=== PATIENT | male | born 1950 | race Caucasian/White ===

== ENCOUNTER → 2020-10-18 | Outpatient (CLI) | payer MEDICARE, BC ==
--- NOTE | 2020-11-20 12:23 | EM ---
EVENT MONITOR The patient was monitored between the 18 of October and the October. The rhythm strip revealed a sinus mechanism with normal conduction. No episode of atrial fibrillation was noted. Episodes of atrial tachycardia was noted. Single PVCs were noted that were asymptomatic. On the 16 of November, patient had an episode that could represent paroxysmal atrial fibrillation of short duration that were asymptomatic. No pauses were noted. MMODDain / JOSHUAN: [id number] /
== END | disposition home or self-care (01) ==
LOC: RADECHMAIN 11:58
PROVIDERS: ATTEND Family Medicine
DX: I69.354 Hemiplegia and hemiparesis following cerebral infarction affecting left non-dominant side (principal)
CPT/HCPCS: 93270

== ENCOUNTER 2021-09-18 06:45 | Day surgery (SDC) | payer MEDICARE, BC ==
[2021-09-17 11:42] VITALS: BMI 38.0
[~2021-09-18 06:45] MED LIST: LACTATED RINGERS 1,000 ML IV SCH; LIDOCAINE 1% (10MG/ML) FOR IV START INTRADERMA PRN; TETRACAINE 0.5% OPHTH (PF) DROPS 4 ML BTL OP PRN
[2021-09-18] MEDS: CYCLOPENTOLATE 1% OPHTH SOLN 2 ML BTL OP PRN ×3 (07:15→07:35)
[2021-09-18] MEDS: PHENYLEPHRINE 2.5% OPHTH DRP 2ML OP PRN ×3 (07:20→07:40)
[2021-09-18 07:25] VITALS: TEMP 96.8
[2021-09-18 07:42] LABS: Glucose,Whole Blood 146 mg/dL (75-99)
[2021-09-18] MEDS ORDERED: MIDAZOLAM 2 MG/2 ML VIAL ONE (08:18)
[2021-09-18] MEDS ORDERED: fentaNYL (PF) 50 MCG/ML 2 ML AMP ONE (08:18)
[2021-09-18] MEDS ORDERED: BALANCED SALT IRRIG SOLN COMB2 15 ML IRRIG.SOLN IRRIGATION ONE (08:39)
[2021-09-18] MEDS ORDERED: HYALURONATE SODIUM INTRAOCULAR 1 EACH SYRINGE (12MG/ML) INTRAOCULA ONE (08:39)
[2021-09-18] MEDS ORDERED: LIDOCAINE 1% (PF) 10MG/ML VIAL MISCELLANE ONE (08:40)
[2021-09-18] MEDS: MOXIFLOXACIN HCL 0.5% DROPS 3 ML BTL OP PRN ×2 (08:40→08:49)
[2021-09-18] MEDS: TIMOLOL 0.5% OPHTH DROPS 5 ML BTL OP PRN ×2 (08:40→08:49)
[2021-09-18] MEDS ORDERED: EPINEPHrine (PF) 0.3 ML in BALANCED SALT IRRIG SOLN COMB2 500 ML IRRIGATION ONE (08:41)
--- NOTE | 2021-09-18 08:56 | P.OP ---
Date of Procedure: 09/18/21 Preoperative Diagnosis: NS & CS & PSC Postoperative Diagnosis: same Procedure(s) Performed: PIOL, OD Implants: [id number] 22.00 x 3.50 Anesthesia: MAC Surgeon: Mt Sterling Pathology: none sent Condition: stable Disposition: same day Indications for Procedure: blurry vision Operative Findings: no complications
[2021-09-18 09:16] VITALS: BP 110/60; PULSE 67; RESP 16
--- NOTE | 2021-09-18 15:14 | OP ---
OPERATIVE REPORT DATE OF PROCEDURE: September 18, 2021. PROCEDURE: Phacoemulsification of cataract and intraocular lens implant of the right eye. PREOPERATIVE DIAGNOSES: Nuclear sclerosis, cortical sclerosis and posterior subcapsular cataract and regular astigmatism. POSTOPERATIVE DIAGNOSES: Nuclear sclerosis, cortical sclerosis and posterior subcapsular cataract and regular astigmatism. SURGEON: Dr. Mt Sterling. ANESTHESIA: Topical. ESTIMATED BLOOD LOSS: None. SPECIMEN: Taken none. NARRATIVE: After obtaining the appropriate consent, the patient was brought to the operating room. There he was asked to sit upright and the axes 0 and 180 degrees were identified and marked with a gentian frank marker. He was then placed in the proper supine position under cardiac monitoring, then prepped and draped in the usual sterile manner. Using previously acquired corneal topography information, the axis of approximately 88 degrees was identified and marked with a Game Insighti axis marker. Attention was then directed to removal of the cataract with an MVR blade entering the anterior chamber of the eye at about 11 o'clock. Through this opening, 1% Xylocaine MPF 50:50 mix with balanced salt solution was injected into the anterior chamber. This was followed by stabilization of the anterior chamber with Amvisc. At the 9 o'clock position, a 2.5 mm keratome was used to create a self-sealing corneal flap incision. Through this opening, a cystotome was introduced to begin a continuous tear capsulorrhexis which was then completed using the Utrata forceps. Hydrodissection and hydrodelineation of the lens were accomplished with balanced salt solution. Phacoemulsification of the lens utilizing phaco chop was accomplished in 15.54 seconds at 13% power. Additional Xylocaine MPF was instilled into the anterior chamber. This was followed by removal of the remaining cortex under irrigation and aspiration as well as careful polishing of the posterior capsule in the capsule vacuum mode. Additional Amvisc was then used to stabilize the capsular bag and a Bausch [employer] Lomb MX 60ET 22.0 diopter by 350 diopter toric lens was inserted into the capsular bag without difficulty. The remaining viscoelastic was removed from in and around the intraocular lens and using the tip of the irrigation/ aspiration instrument, the lens was aligned with the previously placed belle on the patient's cornea. Confirmation was also assured by re-examining the position of the lens with the Cionni axis marker. Once the lens was in the proper supine position, slight pressure posteriorly against the lens held it against the capsule to ensure stability. The remaining viscoelastic above the lens was removed under irrigation and aspiration taking care not to disturb the position of the intraocular lens implant. The eye was then brought to normal intraocular pressure through the paracentesis port with balanced salt solution. All wounds were confirmed watertight. He then received 2 drops of 0.5% timolol followed by 2 drops of moxifloxacin, was then lightly patched and shielded in the usual manner. There were no complications of the procedure. He tolerated the procedure well and was returned to outpatient recovery in good condition. MMODL / IJN: [id number] /
== END 2021-09-18 09:48 | disposition home or self-care (01) ==
LOC: OR 06:45
PROVIDERS: ATTEND Ophthalmology
DX: H25.11 Age-related nuclear cataract, right eye (principal); H25.011 Cortical age-related cataract, right eye; I48.91 Unspecified atrial fibrillation; I10 Essential (primary) hypertension; E78.5 Hyperlipidemia, unspecified; I25.2 Old myocardial infarction; J44.9 Chronic obstructive pulmonary disease, unspecified; Z99.81 Dependence on supplemental oxygen; G47.33 Obstructive sleep apnea (adult) (pediatric); J84.10 Pulmonary fibrosis, unspecified; E11.9 Type 2 diabetes mellitus without complications; I12.9 Hypertensive chronic kidney disease with stage 1 through stage 4 chronic kidney disease, or unspecified chronic kidney disease; E11.22 Type 2 diabetes mellitus with diabetic chronic kidney disease; N18.4 Chronic kidney disease, stage 4 (severe); Z86.73 Personal history of transient ischemic attack (TIA), and cerebral infarction without residual deficits; F43.10 Post-traumatic stress disorder, unspecified; Z79.01 Long term (current) use of anticoagulants; Z79.84 Long term (current) use of oral hypoglycemic drugs; Z79.899 Other long term (current) drug therapy
CPT/HCPCS: 66984; V2787; C1780; J2250; J0171; J3010; J2001

== ENCOUNTER 2021-10-02 08:58 | Day surgery (SDC) | payer MEDICARE, BC ==
[2021-09-30 12:06] VITALS: BMI 38.0
[2021-10-02] MEDS: CYCLOPENTOLATE 1% OPHTH SOLN 2 ML BTL OP PRN ×3 (10:17→10:29)
[2021-10-02] MEDS: PHENYLEPHRINE 2.5% OPHTH DRP 2ML OP PRN ×3 (10:20→10:32)
[2021-10-02 10:24] VITALS: TEMP 97.4
[2021-10-02 10:38] LABS: Glucose,Whole Blood 119 mg/dL (75-99)
[2021-10-02] MEDS ORDERED: MIDAZOLAM 2 MG/2 ML VIAL ONE (11:16)
[2021-10-02] MEDS ORDERED: fentaNYL (PF) 50 MCG/ML 2 ML AMP ONE (11:16)
[2021-10-02] MEDS ORDERED: BALANCED SALT IRRIG SOLN COMB2 15 ML IRRIG.SOLN INTRAOCULA ONE ×2 (11:21→11:56)
[2021-10-02] MEDS ORDERED: DUOVISC KIT (GREEN BOX) INTRAOCULA ONE ×2 (11:21→11:56)
[2021-10-02] MEDS ORDERED: TRYPAN BLUE 0.06% SYRINGE 0.5 ML SYRINGE INTRAOCULA ONE ×2 (11:22→11:56)
[2021-10-02] MEDS ORDERED: LIDOCAINE 1% (PF) 10MG/ML VIAL MISCELLANE ONE ×2 (11:23→11:56)
[2021-10-02] MEDS ORDERED: EPINEPHrine (PF) 0.3 ML in BALANCED SALT IRRIG SOLN COMB2 500 ML IRRIGATION ONE (11:45)
[2021-10-02] MEDS: MOXIFLOXACIN HCL 0.5% DROPS 3 ML BTL OP PRN ×2 (11:45→12:02)
[2021-10-02] MEDS: TIMOLOL 0.5% OPHTH DROPS 5 ML BTL OP PRN ×2 (11:46→12:02)
--- NOTE | 2021-10-02 12:09 | P.OP ---
Date of Procedure: 10/02/21 Preoperative Diagnosis: NS & CS & PSC Postoperative Diagnosis: same Procedure(s) Performed: PIOL, OS Implants: [id number] Anesthesia: MAC Surgeon: Mt Sterling Pathology: none sent Condition: stable Disposition: same day Indications for Procedure: blurry vision Operative Findings: no complications
[2021-10-02 12:30] VITALS: BP 123/76; PULSE 79; RESP 20
--- NOTE | 2021-10-03 11:35 | OP ---
OPERATIVE REPORT DATE OF SURGERY: October 02, 2021. PROCEDURE PERFORMED: Phacoemulsification of cataract and intraocular lens implant of the left eye. PREOPERATIVE DIAGNOSES: Nuclear sclerosis, cortical sclerosis, posterior subcapsular cataract and regular stigmatism. POSTOPERATIVE DIAGNOSES: Nuclear sclerosis, cortical sclerosis, posterior subcapsular cataract and regular stigmatism. SURGEON: Dr. Mt Sterling. ANESTHESIA: Topical. ESTIMATED BLOOD LOSS: None. SPECIMEN TAKEN: None. NARRATIVE: After obtaining the appropriate consent, the patient was brought to the operating room. There he was asked to sit upright and the axes 0 and 180 degrees were identified and marked with a gentian frank marker. He was then placed in the proper supine position under cardiac monitoring and prepped and draped in the usual sterile manner. He was approached from his left temporal side and using previously acquired corneal topography information, the axis of 83 degrees was identified and marked with the Cue axis marker. At the 5 o'clock position, an MVR blade was used to create a paracentesis port. Through this opening 1% Xylocaine MPF 50:50 mix with balanced salt solution was injected into the anterior chamber. This was followed by stabilization of the anterior chamber with Amvisc. At the 3 o'clock position, a 2.5 mm keratome was used to create a self-sealing corneal flap incision. Through this opening, a cystotome was introduced to begin a continuous tear capsulorrhexis which was then completed using the Utrata forceps. Hydrodissection and hydrodelineation of the lens were accomplished with balanced salt solution. Phacoemulsification of the lens utilizing phaco chop was accomplished in 21.87 seconds at 36% power. Additional Xylocaine MPF was instilled into the anterior chamber. This was followed by removal of the remaining cortex under irrigation and aspiration as well as careful polishing of the posterior capsule in capsule vacuum mode. Additional Amvisc was then used to stabilize the capsular bag and a Bausch and Lomb MX 60ET 21.5 diopter by 2 diopter posterior chamber intraocular lens was inserted into the capsular bag and finally rotated to align with the previously identified 83 degree axis on the patient's cornea. The remaining viscoelastic was removed from in and around the intraocular lens as well as confirming watertight integrity. He then received 2 drops of 0.5% timolol followed by 2 drops of 0.5% moxifloxacin. He was then lightly patched and shielded in the usual manner. There were no complications from the procedure. He tolerated the procedure well and was returned to outpatient recovery in good condition. MMKAYLENE / JOSHUAN: [id number] /
== END 2021-10-02 12:41 | disposition home or self-care (01) ==
LOC: OR 08:58
PROVIDERS: ATTEND Ophthalmology
DX: H25.12 Age-related nuclear cataract, left eye (principal); E11.36 Type 2 diabetes mellitus with diabetic cataract; H25.093 Other age-related incipient cataract, bilateral; H52.223 Regular astigmatism, bilateral; H52.03 Hypermetropia, bilateral; H53.2 Diplopia; H00.026 Hordeolum internum left eye, unspecified eyelid; H00.023 Hordeolum internum right eye, unspecified eyelid; H52.4 Presbyopia; Z96.1 Presence of intraocular lens; Z98.41 Cataract extraction status, right eye; Z98.890 Other specified postprocedural states; Z96.643 Presence of artificial hip joint, bilateral; Z79.84 Long term (current) use of oral hypoglycemic drugs; Z79.899 Other long term (current) drug therapy
CPT/HCPCS: 66984; V2632; J2250; J0171; J3010; J2001

== ENCOUNTER 2025-02-14 14:33 | Inpatient (IN) | payer MEDICARE, BC ==
--- NOTE | 2025-02-14 15:03 | ED ---
General Adult HPI - General Chief complaint: Shortness of Breath Stated complaint: SOB Time Seen by Provider: 02/14/25 14:34 Source: patient, RN/MD, RN notes reviewed Mode of arrival: wheelchair Limitations: no limitations - History of Present Illness Initial comments: Patient is a 74-year-old male presents to the emergency department with concerns with difficulty breathing. Symptoms worsened today. Patient has had similar symptoms previously and has stage IV lung cancer. No effusion developed and was drained, 2 L several days ago. Patient followed up with oncology today with positive cells in the effusion and recommended to come here secondary to concern recurrent effusion. Also request medical admission with him and consult as well as cardiothoracic surgery and Dr. Mcqueen. - Related Data Home Medications Medication Instructions Recorded Confirmed Amitriptyline HCl [Elavil] 100 mg PO HS 07/27/17 09/30/21 Cholecalciferol [Vitamin D3 (25 1,000 unit PO DAILY 07/27/17 09/30/21 Mcg = 1000 Iu)] Cyanocobalamin (Vitamin B-12) 500 mcg PO DAILY 07/27/17 09/30/21 [Vitamin B-12] Furosemide [Lasix] 40 mg PO MOWEFR 07/27/17 09/30/21 Magnesium Oxide 400 mg PO DAILY 07/27/17 09/30/21 Multivitamins, Thera [Multivitamin 1 tab PO DAILY 07/27/17 09/30/21 (formulary)] Psyllium Husk [Metamucil] 1.2 gm PO DAILY 07/27/17 09/30/21 Apixaban [Eliquis] 5 mg PO BID 09/17/21 09/30/21 Budesonide [Pulmicort] 0.5 mg INHALATION BID 09/17/21 09/30/21 Empagliflozin [Jardiance] 25 mg PO DAILY 09/17/21 09/30/21 Furosemide [Lasix] 20 mg PO SUTUTHSA 09/17/21 09/30/21 Metoprolol Tartrate 25 mg PO BID 09/17/21 10/02/21 Rosuvastatin [Crestor] 10 mg PO 1900 09/17/21 09/30/21 Tiotropium Joseph [Spiriva] 1 cap INHALATION DAILY 09/17/21 09/30/21 Zolpidem [Ambien] 5 mg PO HS 09/17/21 09/30/21 glipiZIDE [Glucotrol] 20 mg PO AC-BID 09/17/21 09/30/21 Previous Rx's Medication Instructions Recorded Aspirin 81 mg PO DAILY chew 07/28/17 Allergies Allergy/AdvReac Type Severity Reaction Status Date / Time No Known Allergies Allergy Verified 02/14/25 14:38 Review of Systems ROS Statement: Those systems with pertinent positive or pertinent negative responses have been documented in the HPI. ROS Other: All systems not noted in ROS Statement are negative. Constitutional: Denies: fever Eyes: Denies: eye pain ENT: Denies: ear pain Respiratory: Reports: as per HPI, cough, dyspnea Cardiovascular: Denies: chest pain Endocrine: Denies: fatigue Past Medical History Past Medical History: COPD, CVA/TIA, Diabetes Mellitus, Hyperlipidemia, Hypertension, Myocardial Infarction ([place]), Osteoarthritis (OA), Renal Disease, Sleep Apnea/CPAP/BIPAP Additional Past Medical History / Comment(s): TIA X6, PULMONARY FIBROSIS, O2 NEEDED, C PAP MACHINE, CHRONIC KIDNEY STAGE 3, ELEVATED RBC'S, Last Myocardial Infarction Date:: 1985 History of Any Multi-Drug Resistant Organisms: None Reported Past Surgical History: Joint Replacement, Tonsillectomy Additional Past Surgical History / Comment(s): RIGHT TOTAL HIP, LEFT TOTAL HIP REPLACEMENT, INGUINAL HERNIA X 4, CYST REMOVED FROM SCALP Past Anesthesia/Blood Transfusion Reactions: No Reported Reaction Past Psychological History: PTSD Smoking Status: Former smoker Past Alcohol Use History: None Reported Past Drug Use History: None Reported - Past Family History Father Additional Family Medical History / Comment(s): Patient was adopted and does not know his biological family history. Son(s) Family Medical History: Cancer Additional Family Medical History / Comment(s): Patient has one son has been diagnosed with bladder cancer. Patient has one daughter with no major medical problems. General Exam Limitations: no limitations General appearance: alert, in no apparent distress Head exam: Present: normocephalic Eye exam: Present: normal appearance Neck exam: Present: normal inspection Respiratory exam: Present: decreased breath sounds Cardiovascular Exam: Present: regular rate, normal rhythm GI/Abdominal exam: Present: soft. Absent: tenderness Extremities exam: Present: normal inspection. Absent: pedal edema, calf tenderness Neurological exam: Present: alert. Absent: motor sensory deficit Psychiatric exam: Present: normal affect, normal mood Skin exam: Present: normal color Course Vital Signs 02/14/25 02/14/25 02/14/25 14:34 14:38 14:52 Temperature 97.9 F Pulse Rate 92 93 Respiratory 20 20 20 Rate Blood Pressure 107/69 121/79 O2 Sat by Pulse 96 97 Oximetry 02/14/25 15:30 Temperature Pulse Rate 92 Respiratory 18 Rate Blood Pressure 133/73 O2 Sat by Pulse 95 Oximetry EKG Findings - EKG Results: EKG: interpreted by ERMD, sinus rhythm, normal axis, normal QRS, normal ST/T Medical Decision Making - Medical Decision Making Was pt. sent in by a medical professional or institution (, PA, INSTALLATION & MAINTENANCE EXECUTIVE, urgent care, hospital, or usp...) When possible be specific @ -Patient was sent in by Dr. Andrew Garcia Did you speak to anyone other than the patient for history (EMS, parent, family, police, friend...)? What history was obtained from this source @ -Dr. Mahan provided history of recent thoracentesis Did you review nursing and triage notes (agree or disagree)? Why? @ -I reviewed and agree with nursing and triage notes Were old charts reviewed (outside hosp., previous admission, EMS record, old EKG, old radiological studies, urgent care reports/EKG's, usp records)? Report findings @ -No old charts were reviewed Differential Diagnosis (chest pain, altered mental status, abdominal pain women, abdominal pain men, vaginal bleeding, weakness, fever, dyspnea, syncope, headache, dizziness, GI bleed, back pain, seizure, CVA, palpatations, mental health, musculoskeletal)? @ -Differential Dyspnea: Coronary syndrome, arrhythmia, tamponade, asthma, COPD, pulmonary embolism, pneumonia, pneumothorax, pulmonary effusion, anaphylaxis, diabetic ketoacidosis, flailed chest, pulmonary contusion, diaphragmatic rupture, anemia, neuromuscular, this is not meant to be an all-inclusive list. EKG interpreted by me (3pts min.). @ -As above X-rays interpreted by me (1pt min.). @ -Chest x-ray shows large left effusion CT interpreted by me (1pt min.). @ -None done U/S interpreted by me (1pt. min.). @ -None done What testing was considered but not performed or refused? (CT, X-rays, U/S, labs)? Why? @ -None What meds were considered but not given or refused? Why? @ -None Did you discuss the management of the patient with other professionals (professionals i.e. , PA, INSTALLATION & MAINTENANCE EXECUTIVE, lab, RT, psych nurse, social welfare research worker, reinforcing iron worker helper, teacher, parachute/combatant diver officer, top case assembler)? Give summary @ -Dr. Mich Beltrán, see above case all discussed with Dr. George Terry who will admit covering Dr. Miles Was smoking cessation discussed for >3mins.? @ -No Was critical care preformed (if so, how long)? @ -No Were there social determinants of health that impacted care today? How? (Homelessness, low income, unemployed, alcoholism, drug addiction, transportation, low edu. Level, literacy, decrease access to med. care, fpc, rehab)? @ -No Was there de-escalation of care discussed even if they declined (Discuss DNR or withdrawal of care, Hospice)? DNR status @ -No What co-morbidities impacted this encounter? (DM, HTN, Smoking, COPD, CAD, Cancer, CVA, ARF, Chemo, Hep., AIDS, mental health diagnosis, sleep apnea, morbid obesity)? @ -Metastatic lung cancer Was patient admitted / discharged? Hospital course, mention meds given and route, prescriptions, significant lab abnormalities, going to OR and other pertinent info. @ -Patient presents with stage IV lung cancer and recurrent left effusion. David flores will be admitted with cardiothoracic consult for probable tube placement. Oncology and pulmonary will also be placed on consult. Patient and family are made aware. Douglas orders written. Undiagnosed new problem with uncertain prognosis? @ -No Drug Therapy requiring intensive monitoring for toxicity (Heparin, Nitro, Insulin, Cardizem)? @ -No Were any procedures done? @ -No Diagnosis/symptom? @ -Left effusion, stage IV lung cancer Acute, or Chronic, or Acute on Chronic? @ -Acute, acute on chronic Uncomplicated (without systemic symptoms) or Complicated (systemic symptoms)? @ -Default Side effects of treatment? @ -No Exacerbation, Progression, or Severe Exacerbation? @ -No Poses a threat to life or bodily function? How? (Chest pain, [place], [place], pneumonia, PE, COPD, DKA, ARF, appy, cholecystitis, CVA, Diverticulitis, Homicidal, Suicidal, threat to staff... and all critical care pts) @ -Threat to pulmonary function - Lab Data Result diagrams: 02/14/25 14:53 02/14/25 14:53 Lab Results 02/14/25 02/14/25 02/14/25 Range/Units 14:53 14:53 14:53 WBC 7.20 (4.50-10.00) 10*3/uL RBC 3.88 L (4.40-5.60) 10*6/uL Hgb 13.2 (13.0-17.0) g/dL Hct 40.3 (39.6-50.0) % MCV 103.9 H (80.0-97.0) fL MCH 34.0 H (27.0-32.0) pg MCHC 32.8 (32.0-37.0) g/dL Plt Count 205 (140-440) 10*3/uL MPV 10.4 (9.5-12.2) fL Immature Gran % (Auto) 0.6 % Neutrophils % 83.4 % Lymphocytes % 6.0 % Monocytes % 7.8 % Eosinophils % 1.8 % Basophils % 0.4 % Immature Gran # 0.04 (0.00-0.04) 10*3/uL Neutrophils # 6.01 (1.80-7.70) 10*3/uL Lymphocytes # 0.43 L (0.90-5.00) 10*3/uL Monocytes # 0.56 (0.20-1.00) 10*3/uL Eosinophils # 0.13 (0.04-0.35) 10*3/uL Basophils # 0.03 (0.00-0.10) 10*3/uL PT 12.2 (10.0-12.5) sec INR 1.1 (<1.2) APTT 26.1 (22.0-30.0) sec Sodium 138 (137-145) mmol/L Potassium 4.3 (3.5-5.1) mmol/L Chloride 102 (98-107) mmol/L Carbon Dioxide 29 (22-30) mmol/L Anion Gap 7 mmol/L BUN 19 (9-20) mg/dL Creatinine 1.19 (0.66-1.25) mg/dL Est GFR (CKD-EPI)AfAm 68 (>60 ml/min/1.73 sqM) Est GFR (CKD-EPI)NonAf 59 (>60 ml/min/1.73 sqM) Glucose 174 H (74-99) mg/dL Plasma Lactic Acid Malik (0.7-2.0) mmol/L Calcium 8.9 (8.4-10.2) mg/dL Total Bilirubin 0.4 (0.2-1.3) mg/dL AST 26 (17-59) U/L ALT 30 (4-49) U/L Alkaline Phosphatase 82 (38-126) U/L Troponin I (0.000-0.034) ng/mL Total Protein 5.7 L (6.3-8.2) g/dL Albumin 3.2 L (3.5-5.0) g/dL 02/14/25 02/14/25 Range/Units 14:53 14:53 WBC (4.50-10.00) 10*3/uL RBC (4.40-5.60) 10*6/uL Hgb (13.0-17.0) g/dL Hct (39.6-50.0) % MCV (80.0-97.0) fL MCH (27.0-32.0) pg MCHC (32.0-37.0) g/dL Plt Count (140-440) 10*3/uL MPV (9.5-12.2) fL Immature Gran % (Auto) % Neutrophils % % Lymphocytes % % Monocytes % % Eosinophils % % Basophils % % Immature Gran # (0.00-0.04) 10*3/uL Neutrophils # (1.80-7.70) 10*3/uL Lymphocytes # (0.90-5.00) 10*3/uL Monocytes # (0.20-1.00) 10*3/uL Eosinophils # (0.04-0.35) 10*3/uL Basophils # (0.00-0.10) 10*3/uL PT (10.0-12.5) sec INR (<1.2) APTT (22.0-30.0) sec Sodium (137-145) mmol/L Potassium (3.5-5.1) mmol/L Chloride (98-107) mmol/L Carbon Dioxide (22-30) mmol/L Anion Gap mmol/L BUN (9-20) mg/dL Creatinine (0.66-1.25) mg/dL Est GFR (CKD-EPI)AfAm (>60 ml/min/1.73 sqM) Est GFR (CKD-EPI)NonAf (>60 ml/min/1.73 sqM) Glucose (74-99) mg/dL Plasma Lactic Acid Malik 1.8 (0.7-2.0) mmol/L Calcium (8.4-10.2) mg/dL Total Bilirubin (0.2-1.3) mg/dL AST (17-59) U/L ALT (4-49) U/L Alkaline Phosphatase (38-126) U/L Troponin I <0.012 (0.000-0.034) ng/mL Total Protein (6.3-8.2) g/dL Albumin (3.5-5.0) g/dL Disposition Clinical Impression: Recurrent left pleural effusion Disposition: ADMITTED IP TO THIS [facility] Condition: Serious Is patient prescribed a controlled substance at d/c from ED?: No Referrals: Felicity Miles MD [Primary Care Provider] - 1-2 days Time of Disposition: 16:11
[2025-02-14 15:09] LABS: Basophils # (A) 0.03 10*3/uL (0.00-0.10); Basophils % (A) 0.4 %; Eosinophils # (A) 0.13 10*3/uL (0.04-0.35); Eosinophils % (A) 1.8 %; HCT 40.3 % (39.6-50.0); HGB 13.2 g/dL (13.0-17.0); Lymphocytes # (A) 0.43 10*3/uL (0.90-5.00); Lymphocytes % (A) 6.0 %; MCH 34.0 pg (27.0-32.0); MCHC 32.8 g/dL (32.0-37.0); MCV 103.9 fL (80.0-97.0); Monocytes # (A) 0.56 10*3/uL (0.20-1.00); Monocytes % (A) 7.8 %; Neutrophils # (A) 6.01 10*3/uL (1.80-7.70); Neutrophils % (A) 83.4 %; Platelet Count 205 10*3/uL (140-440); RBC 3.88 10*6/uL (4.40-5.60); RDW 13.0 % (11.5-14.5); WBC 7.20 10*3/uL (4.50-10.00)
[2025-02-14 15:17] LABS: INR 1.1 (<1.2); Partial Thromboplastin Time 26.1 sec (22.0-30.0); Prothrombin Time 12.2 sec (10.0-12.5)
[2025-02-14 15:20] LABS: ALT 30 U/L (4-49); AST 26 U/L (17-59); African American GFR (CKD) 68 (>60 ml/min/1.73 sqM); Albumin 3.2 g/dL (3.5-5.0); Alkaline Phosphatase 82 U/L (38-126); Anion Gap 7 mmol/L; Blood Urea Nitrogen 19 mg/dL (9-20); Calcium 8.9 mg/dL (8.4-10.2); Carbon Dioxide 29 mmol/L (22-30); Chloride 102 mmol/L (98-107); Glucose 174 mg/dL (74-99); Non-African American GFR(CKD) 59 (>60 ml/min/1.73 sqM); Potassium 4.3 mmol/L (3.5-5.1); Sodium 138 mmol/L (137-145); Total Protein 5.7 g/dL (6.3-8.2)
--- NOTE | 2025-02-14 15:40 | XR ---
EXAMINATION TYPE: XR chest 2V DATE OF EXAM: 02/14/2025 3:28 PM COMPARISON: None at this location. CLINICAL INDICATION: Male, 74 years old with history of difficulty breathing, TECHNIQUE: XR chest 2V view(s) obtained. FINDINGS: The heart size may be enlarged. The left heart border however is obscured by a large left pleural eff usion. The pulmonary vasculature is normal. There is a large left pleural effusion.. IMPRESSION: 1. Large left pleural effusion [facility], Workstation: [facility], 02/14/2025 3:38 PM
[2025-02-14] MEDS ORDERED: traMADol 50 MG TAB PO PRN (16:11)
[2025-02-14] MEDS ORDERED: ACETAMINOPHEN TAB 325 MG TAB PO PRN (16:11)
[2025-02-14] MEDS ORDERED: MORPHINE SULFATE 4 MG/ML SYRINGE IV PRN (16:11)
[2025-02-14] MEDS ORDERED: NALOXONE 0.4 MG/ML 1 ML VIAL IV PRN (16:11)
[2025-02-14] MEDS: SODIUM CHLORIDE 0.9% 1,000 ML IV SCH (16:23)
[2025-02-14 17:26] LABS: RSV Not Detected (Not Detectd)
[2025-02-14] MEDS ORDERED: DEXTROSE 50% SYRINGE 50 ML IVP PRN ×2 (20:43)
[2025-02-14] MEDS ORDERED: NITROGLYCERIN SL TABS 0.4 MG TAB SUBLINGUAL PRN (20:44)
[2025-02-14] MEDS ORDERED: FUROSEMIDE 40 MG TAB PO PRN (20:44)
[2025-02-14] MEDS ORDERED: METOPROLOL TARTRATE 12.5 MG TAB PO PRN (20:44)
[2025-02-14 21:26] LABS: Glucose,Whole Blood 156 mg/dL (70-110)
[2025-02-14] MEDS: AMMONIUM LACTATE 12% LOTION 225 GM BTL TOPICAL SCH (22:27)
[2025-02-14] MEDS: METOPROLOL TARTRATE 50 MG TAB PO SCH (22:27)
[2025-02-14] MEDS: INSULIN LISPRO (HumaLOG) 100 UNIT/ML 10 mL VL SQ SCH (22:27)
[2025-02-14] MEDS: AMITRIPTYLINE HCL 50 MG TAB PO SCH (22:27)
[2025-02-14] MEDS: ZOLPIDEM 5 MG TAB PO SCH (22:28)
[2025-02-14] MEDS: MAGNESIUM OXIDE 400 MG TAB PO SCH (22:28)
--- NOTE | 2025-02-14 23:18 | P.HPIM ---
History of Present Illness H&P Date: 02/14/25 Chief Complaint: Shortness of breath Patient is a 74-year-old male with a past medical history of metastatic lung cancer with prior thoracentesis, diabetes type 2, hypertension, hyperlipidemia, history of CVA/TIA, obstructive sleep apnea on CPAP, pulmonary fibrosis CKD stage III and prior history of smoking. Patient was sent to ER from his oncologist office due to shortness of breath and left-sided pleural effusion. Patient initially presented due to difficulty in breathing which has been worsening. Patient was sent to ER due to recurrent pleural effusion. Otherwise patient denied any complaints of fever or chills. Mild cough without any sputum production. No complaints of chest pain. Denies any worsening leg swelling. No nausea vomiting abdominal pain or diarrhea. Chest x-ray showed large left pleural effusion. EKG showed sinus rhythm. Laboratory data showed WBC 7.2, hemoglobin 13.2 and platelets 205 MCV 103.9, sodium 138 potassium 4.3 chloride 102 bicarb is 29 BUN 19 and creatinine 1.19 and blood sugar 174. Albumin 3.2 Influenza A B RSV and COVID-19 PCR not detected. Review of Systems Constitutional: Patient denies any fever or chills . No generalized weakness or weight loss. Abdomen: Patient denied nausea vomiting and diarrhea and abdominal pain. Cardiovascular: Patient denies any chest pain. Positive for short of breath no palpitations. No worsening leg swelling. Respiratory: Does have mild cough without sputum production. Positive for shortness of breath Neurologic: Patient denied any numbness or tingling. no headache. Musculoskeletal: Patient denies any complaints of joint swelling or deformity. Skin: Negative Psychiatric: Negative Endocrine: No heat or cold intolerance. No recent weight gain. Genitourinary: No dysuria or hematuria. All other 14 point ROS negative except the above Past Medical History Past Medical History: COPD, CVA/TIA, Diabetes Mellitus, Hyperlipidemia, Hypertension, Myocardial Infarction ([place]), Osteoarthritis (OA), Renal Disease, Sleep Apnea/CPAP/BIPAP Additional Past Medical History / Comment(s): TIA X6, PULMONARY FIBROSIS, O2 NEEDED, C PAP MACHINE, CHRONIC KIDNEY STAGE 3, ELEVATED RBC'S, Last Myocardial Infarction Date:: 1985 History of Any Multi-Drug Resistant Organisms: None Reported Past Surgical History: Joint Replacement, Tonsillectomy Additional Past Surgical History / Comment(s): RIGHT TOTAL HIP, LEFT TOTAL HIP REPLACEMENT, INGUINAL HERNIA X 4, CYST REMOVED FROM SCALP Past Anesthesia/Blood Transfusion Reactions: No Reported Reaction Smoking Status: Former smoker - Past Family History Father Additional Family Medical History / Comment(s): Patient was adopted and does not know his biological family history. Son(s) Family Medical History: Cancer Additional Family Medical History / Comment(s): Patient has one son has been diagnosed with bladder cancer. Patient has one daughter with no major medical problems. Medications and Allergies Home Medications Medication Instructions Recorded Confirmed Type Furosemide [Lasix] 40 mg PO DAILY PRN 07/27/17 02/14/25 History Magnesium Oxide 400 mg PO HS 07/27/17 02/14/25 History Psyllium Husk [Metamucil] 1.6 gm PO DAILY 07/27/17 02/14/25 History Apixaban [Eliquis] 5 mg PO BID 09/17/21 02/14/25 History Metoprolol Tartrate 50 mg PO BID 09/17/21 02/14/25 History Tiotropium [place] [Spiriva] 2 puff INHALATION RT-DAILY 09/17/21 02/14/25 History Zolpidem [Ambien] 5 mg PO HS 09/17/21 02/14/25 History Amitriptyline HCl [Elavil] 100 mg PO HS 02/14/25 02/14/25 History Ammonium Lactate Lotion 1 applic TOPICAL BID 02/14/25 02/14/25 History [Lac-Hydrin 12% Lotion] Cholecalciferol (Vitamin D3) 50 mcg PO DAILY 02/14/25 02/14/25 History [Vitamin D3 (50 Mcg = 2000 Iu)] Cyanocobalamin [Vitamin B-12] 500 mcg PO DAILY 02/14/25 02/14/25 History Insulin Glargine,Hum.rec.anlog 28 units SQ DAILY 02/14/25 02/14/25 History [Lantus Solostar Pen] Metoprolol Tartrate 12.5 mg PO DAILY PRN 02/14/25 02/14/25 History Nitroglycerin Sl Tabs [Nitrostat] 0.4 mg SUBLINGUAL Q5M PRN 02/14/25 02/14/25 History Rosuvastatin [Crestor] 10 mg PO DAILY 02/14/25 02/14/25 History Semaglutide [Ozempic] 2 mg SQ WE 02/14/25 02/14/25 History Allergies Allergy/AdvReac Type Severity Reaction Status Date / Time No Known Allergies Allergy Verified 02/14/25 18:28 Physical Exam Vitals: Vital Signs Temp Pulse Pulse Resp BP BP Pulse Ox 02/14/25 18:46 98.4 F 98 18 117/78 96 02/14/25 18:00 98.2 F 95 18 104/68 94 L 02/14/25 16:52 93 20 101/66 98 02/14/25 15:30 92 18 133/73 95 02/14/25 14:52 20 02/14/25 14:38 93 20 121/79 97 02/14/25 14:34 97.9 F 92 20 107/69 96 Intake and Output 02/14/25 02/14/25 02/15/25 14:59 22:59 06:59 Intake Total 240 Balance 240 Intake: Oral 240 Other: Weight 103.419 kg 103.419 kg PHYSICAL EXAMINATION: Patient is lying in the bed comfortably, no acute distress, awake alert and oriented.. HEENT: Normocephalic. Neck is supple. Pupils reactive. Nostrils clear. Oral cavity is moist. Neck reveals no JVD, carotid bruits, or thyromegaly. CHEST EXAMINATION: Trachea is central. Symmetrical expansion. Left lower lungs diminished breath sounds. No wheezing or rhonchi. Nonlabored breathing. CARDIAC: Normal S1, S2 with no gallops. No murmurs ABDOMEN: Soft. Bowel sounds normal. No organomegaly. No abdominal bruits. Extremities: Bilateral lower extremity trace edema. No clubbing or cyanosis Neurologically awake, alert, oriented x3 with well-coordinated movements. No focal deficits noted Skin: No rash or skin lesions. Psychiatric: Coperative. Nonsuicidal Musculoskeletal: No joint swelling or deformity. Normal range of motion. Results CBC & Chem 7: 02/14/25 14:53 02/14/25 14:53 Labs: Abnormal Lab Results - Last 24 Hours (Table) 02/14/25 02/14/25 02/14/25 Range/Units 14:53 14:53 21:23 RBC 3.88 L (4.40-5.60) 10*6/uL MCV 103.9 H (80.0-97.0) fL MCH 34.0 H (27.0-32.0) pg Lymphocytes # 0.43 L (0.90-5.00) 10*3/uL Glucose 174 H (74-99) mg/dL POC Glucose (mg/dL) 156 H (70-110) mg/dL Total Protein 5.7 L (6.3-8.2) g/dL Albumin 3.2 L (3.5-5.0) g/dL Thrombosis Risk Factor Assmnt - DVT/VTE Prophylaxis DVT/VTE Prophylaxis: Pharmacologic Prophylaxis ordered - Choose All That Apply Any of the Below Risk Factors Present?: Yes Each Factor Represents 1 point: Abnormal pulmonary function (COPD) Each Risk Factor Represents 2 Points: Malignancy Other congenital or acquired thrombophilia - If yes, enter type in comment: No Thrombosis Risk Factor Assessment Total Risk Factor Score: 3 Thrombosis Risk Factor Assessment Level: Moderate Risk Assessment and Plan Assessment: Large left pleural effusion with worsening shortness of breath Prior history of thoracentesis with 2 L fluid removal Metastatic lung cancer Diabetes type 2 with hyperglycemia uncontrolled Hyperlipidemia History of CVA/TIA Obstructive sleep apnea on CPAP CKD stage III Prior history of smoking DVT prophylaxis with heparin subcu Plan: Patient will be continued on home medication including Lasix. Oxygen supplementation as needed. CT surgery and pulmonary was consulted for evaluation and possible Pleurx catheter placement. Insulin sliding scale along with home dose of Lantus 28 units subcu daily. Continue to follow closely. Prognosis is guarded. Time with Patient: Greater than 30
[2025-02-14] MEDS: HEPARIN SODIUM,PORCINE 5,000 UNIT/ML 1 ML VIAL SQ SCH (23:59)
--- NOTE | 2025-02-15 04:00 | P.CNPUL ---
History of Present Illness Consult date: 02/15/25 Requesting physician: Pedro Gandhi Reason for consult: other (Left-sided pleural effusion) Chief complaint: Shortness of breath History of present illness: Patient is a 74-year-old male with reported past medical history including hypertension, hyperlipidemia, diabetes mellitus, GIANLUCA with CPAP, former tobacco smoker, COPD. Follows with Dr. ED Herron for management of his pulmonary needs. Apparently, recently admitted at [facility] and underwent left- sided thoracentesis and a total of 2 L was removed. Per the patient it was cancer fluid. He states he has been diagnosed with lung cancer and on immunotherapy. Reportedly, follows with Dr. Muñoz. Developed progressive increased work of breathing since his hospital discharge. He was at his oncology office who recommended he come to the emergency department for evaluation. Chest x-ray showing a large left pleural effusion. CBC unremarkable for leukocytosis. Hemoglobin 13.2 g/dL. Platelets 205. CMP unremarkable, electrolytes WDL, creatinine 1.19, glucose 174. Lactic 1.8. LFTs unremarkable. Troponin less than 0.012. Viral screen for influenza A/B, RSV, COVID negative. Patient currently being seen on the oncology unit. He is resting comfortably on 3 L/min nasal cannula. States he has progressively been more short of breath since his hospital discharge. Denies any cough, sputum production, hemoptysis, pleurisy, fevers or chills, nausea or vomiting or diarrhea. Current vital signs: Temperature 97.8 F, heart rate 85 beats minute, blood pressure 113/72 mmHg, nontachypneic, SpO2 was recorded at 96% on 3 L/min nasal cannula. Review of Systems REVIEW OF SYSTEMS: CONSTITUTIONAL: Denies any recent significant weight loss or weight gain. Denies fevers or chills. Admits generalized fatigue and weakness EYES: Denies change in vision. EARS, NOSE, MOUTH, THROAT: Denies headaches, denies sore throat. CARDIOVASCULAR: Denies chest pain, palpitations, syncope, lower extremity edema RESPIRATORY: See HPI GASTROINTESTINAL: Denies change in appetite, abdominal pain, nausea and vomiting, or diarrhea GENITOURINARY: Denies hematuria, denies infections. MUSKULOSKELETAL: Denies pain, denies swelling. INTEGUMENTARY: Denies rash, denies eczema. NEUROLOGICAL: Denies recent memory loss, no recent seizure activity. PSYCHIATRIC: Denies anxiety, denies depression. HEMATOLOGIC/LYMPHATIC: Denies anemia, denies enlarged lymph node Past Medical History Past Medical History: COPD, CVA/TIA, Diabetes Mellitus, Hyperlipidemia, Hypertension, Myocardial Infarction ([place]), Osteoarthritis (OA), Renal Disease, Sleep Apnea/CPAP/BIPAP Additional Past Medical History / Comment(s): TIA X6, PULMONARY FIBROSIS, O2 NEEDED, C PAP MACHINE, CHRONIC KIDNEY STAGE 3, ELEVATED RBC'S, Last Myocardial Infarction Date:: 1985 History of Any Multi-Drug Resistant Organisms: None Reported Past Surgical History: Joint Replacement, Tonsillectomy Additional Past Surgical History / Comment(s): RIGHT TOTAL HIP, LEFT TOTAL HIP REPLACEMENT, INGUINAL HERNIA X 4, CYST REMOVED FROM SCALP Past Anesthesia/Blood Transfusion Reactions: No Reported Reaction Smoking Status: Former smoker - Past Family History Father Additional Family Medical History / Comment(s): Patient was adopted and does not know his biological family history. Son(s) Family Medical History: Cancer Additional Family Medical History / Comment(s): Patient has one son has been diagnosed with bladder cancer. Patient has one daughter with no major medical problems. Medications and Allergies Home Medications Medication Instructions Recorded Confirmed Type Furosemide [Lasix] 40 mg PO DAILY PRN 07/27/17 02/14/25 History Magnesium Oxide 400 mg PO HS 07/27/17 02/14/25 History Psyllium Husk [Metamucil] 1.6 gm PO DAILY 07/27/17 02/14/25 History Apixaban [Eliquis] 5 mg PO BID 09/17/21 02/14/25 History Metoprolol Tartrate 50 mg PO BID 09/17/21 02/14/25 History Tiotropium [place] [Spiriva] 2 puff INHALATION RT-DAILY 09/17/21 02/14/25 History Zolpidem [Ambien] 5 mg PO HS 09/17/21 02/14/25 History Amitriptyline HCl [Elavil] 100 mg PO HS 02/14/25 02/14/25 History Ammonium Lactate Lotion 1 applic TOPICAL BID 02/14/25 02/14/25 History [Lac-Hydrin 12% Lotion] Cholecalciferol (Vitamin D3) 50 mcg PO DAILY 02/14/25 02/14/25 History [Vitamin D3 (50 Mcg = 2000 Iu)] Cyanocobalamin [Vitamin B-12] 500 mcg PO DAILY 02/14/25 02/14/25 History Insulin Glargine,Hum.rec.anlog 28 units SQ DAILY 02/14/25 02/14/25 History [Lantus Solostar Pen] Metoprolol Tartrate 12.5 mg PO DAILY PRN 02/14/25 02/14/25 History Nitroglycerin Sl Tabs [Nitrostat] 0.4 mg SUBLINGUAL Q5M PRN 02/14/25 02/14/25 History Rosuvastatin [Crestor] 10 mg PO DAILY 02/14/25 02/14/25 History Semaglutide [Ozempic] 2 mg SQ WE 02/14/25 02/14/25 History Allergies Allergy/AdvReac Type Severity Reaction Status Date / Time No Known Allergies Allergy Verified 02/14/25 18:28 Physical Exam Vitals: Vital Signs Temp Pulse Pulse Resp BP BP Pulse Ox 02/15/25 00:59 97.8 F 85 20 113/72 90 L 02/14/25 18:46 98.4 F 98 18 117/78 96 02/14/25 18:00 98.2 F 95 18 104/68 94 L 02/14/25 16:52 93 20 101/66 98 02/14/25 15:30 92 18 133/73 95 02/14/25 14:52 20 02/14/25 14:38 93 20 121/79 97 02/14/25 14:34 97.9 F 92 20 107/69 96 Intake and Output 02/14/25 02/14/25 02/15/25 14:59 22:59 06:59 Intake Total 240 Balance 240 Intake: Oral 240 Other: Voiding Method Toilet Weight 103.419 kg 103.419 kg GENERAL EXAM: Alert, 74-year-old male, comfortable in no apparent distress. HEAD: Normocephalic and atraumatic EYES: Normal reaction of pupils, equal size. NOSE: Clear with pink turbinates. THROAT: No erythema or exudates. NECK: No masses, no JVD. CHEST: No chest wall deformity. LUNGS: Equal air entry with markedly diminished left lung sounds. On 3 L/min nasal cannula. No conversational dyspnea or accessory muscle use.. CVS: S1 and S2 normal with no audible murmur, regular rhythm. No extra heart sounds ABDOMEN: No hepatosplenomegaly, active bowel sounds, no guarding or rigidity. SPINE: No scoliosis or deformity SKIN: No rashes CENTRAL NERVOUS SYSTEM: No focal deficits, tone is normal in all 4 extremities. EXTREMITIES: There is no peripheral edema, clubbing, or cyanosis. Peripheral pulses are intact. Results - Laboratory Findings CBC and BMP: 02/14/25 14:53 02/14/25 14:53 PT/INR, D-dimer PT 12.2 sec (10.0-12.5) 02/14/25 14:53 INR 1.1 (<1.2) 02/14/25 14:53 Abnormal lab findings: Abnormal Labs 02/14/25 02/14/25 02/14/25 14:53 14:53 21:23 RBC 3.88 L MCV 103.9 H MCH 34.0 H Lymphocytes # 0.43 L Glucose 174 H POC Glucose (mg/dL) 156 H Total Protein 5.7 L Albumin 3.2 L - Diagnostic Findings Chest x-ray: image reviewed Assessment and Plan Assessment: Large left-sided pleural effusion Acute hypoxemic respiratory failure, currently on 3 L/min nasal cannula, secondary to above Recently diagnosed metastatic lung cancer, per patient Chronic obstructive pulmonary disease, inactive Former tobacco smoker, quitting over 20 years ago Obstructive sleep apnea with home CPAP Hypertension History of hyperlipidemia Diabetes mellitus History of CVA/TIA Plan: Patient reportedly recently underwent left-sided thoracentesis with a total of 2 L removed from the pleural space at outside facility. Pathology was apparently positive for cancer cells. Request documentation from outside facility Checks x-ray reviewed and there is a large left-sided pleural effusion Hold Marizol Consider cardiothoracic surgery consultation for possible Pleurx catheter If for some reason, patient unable to have the procedure, Dr. Perdue would likely be amenable for left-sided thoracentesis. This will be discussed with him later this morning. Further recommendations to follow. I have personally seen and examined the patient, performed the documentation and the assessment and plan as written. Number of minutes spent on the visit:20 Time with Patient: Greater than 30
[2025-02-15 07:18] LABS: Glucose,Whole Blood 110 mg/dL (70-110)
[2025-02-15] MEDS: TIOTROPIUM 2.5 MCG INHALER INHALATION SCH (07:47)
--- NOTE | 2025-02-15 07:59 | P.GSCN ---
History of Present Illness Consult date: 02/15/25 Reason for Consult: Recurrent left sided pleural effusion Requesting physician: Pedro Gandhi History of present illness: This is a 74 year old gentleman who follows outpatient with Dr. Miles for primary care, Dr. ED Herron for pulmonology, and Dr. Muñoz for oncology. He has a previous medical history of tobacco dependence with cessation more than 17 years ago, COPD on home oxygen PRN, pulmonary fibrosis, GIANLCUA with home cpap use, CAD with previous ME, HTN, HLD, multiple TIAs on Eliquis outpatient, DM, and CKD stage III. He was diagnosed with stage IV lung cancer recently, has undergone chemo and radiation, and recently started immunotherapy. He was hospitalized recently and had a left pleural effusion which was drained a few days ago for 2 liters fluid. States he did feel better for a short time but has had progressive shortness of breath. He followed up with oncology yesterday, was found to have recurrent left pleural effusion and was recommended to report to the ER to be admitted for evaluation and treatment from pulmonology and cardiothoracic surgery for pleural effusion. In the ER CXR demonstrated large left sided pleural effusion. EKG showed sinus rhythm. Labwork revealed WBC 7.2, hgb 13.2, INR 1.1, creatinine 1.19, lactic acid 1.8, and viral screen was negative. The patient was admitted to the oncology unit. Of note the patient has been on eliquis with last dose yesterday morning. Review of Systems Review of systems was completed and was negative except as noted - Respiratory Reports as per HPI, Reports dyspnea Past Medical History Past Medical History: Coronary Artery Disease (CAD), Cancer, COPD, CVA/TIA, Diabetes Mellitus, Hyperlipidemia, Hypertension, Myocardial Infarction ([place]), Osteoarthritis (OA), Renal Disease, Sleep Apnea/CPAP/BIPAP Additional Past Medical History / Comment(s): TIA X6, PULMONARY FIBROSIS, O2 NEEDED, C PAP MACHINE, CHRONIC KIDNEY STAGE 3, stage IV lung cancer, recurrent left sided pleural effusion Last Myocardial Infarction Date:: 1985 History of Any Multi-Drug Resistant Organisms: None Reported Past Surgical History: Joint Replacement, Tonsillectomy Additional Past Surgical History / Comment(s): RIGHT TOTAL HIP, LEFT TOTAL HIP REPLACEMENT, INGUINAL HERNIA X 4, CYST REMOVED FROM SCALP; left sided thoracentesis Past Anesthesia/Blood Transfusion Reactions: No Reported Reaction Smoking Status: Former smoker Past Alcohol Use History: None Reported Past Drug Use History: None Reported - Past Family History Father Additional Family Medical History / Comment(s): Patient was adopted and does not know his biological family history. Son(s) Family Medical History: Cancer Additional Family Medical History / Comment(s): Patient has one son has been diagnosed with bladder cancer. Patient has one daughter with no major medical problems. Medications and Allergies Home Medications Medication Instructions Recorded Confirmed Type Furosemide [Lasix] 40 mg PO DAILY PRN 07/27/17 02/14/25 History Magnesium Oxide 400 mg PO HS 07/27/17 02/14/25 History Psyllium Husk [Metamucil] 1.6 gm PO DAILY 07/27/17 02/14/25 History Apixaban [Eliquis] 5 mg PO BID 09/17/21 02/14/25 History Metoprolol Tartrate 50 mg PO BID 09/17/21 02/14/25 History Tiotropium [place] [Spiriva] 2 puff INHALATION RT-DAILY 09/17/21 02/14/25 History Zolpidem [Ambien] 5 mg PO HS 09/17/21 02/14/25 History Amitriptyline HCl [Elavil] 100 mg PO HS 02/14/25 02/14/25 History Ammonium Lactate Lotion 1 applic TOPICAL BID 02/14/25 02/14/25 History [Lac-Hydrin 12% Lotion] Cholecalciferol (Vitamin D3) 50 mcg PO DAILY 02/14/25 02/14/25 History [Vitamin D3 (50 Mcg = 2000 Iu)] Cyanocobalamin [Vitamin B-12] 500 mcg PO DAILY 02/14/25 02/14/25 History Insulin Glargine,Hum.rec.anlog 28 units SQ DAILY 02/14/25 02/14/25 History [Lantus Solostar Pen] Metoprolol Tartrate 12.5 mg PO DAILY PRN 02/14/25 02/14/25 History Nitroglycerin Sl Tabs [Nitrostat] 0.4 mg SUBLINGUAL Q5M PRN 02/14/25 02/14/25 History Rosuvastatin [Crestor] 10 mg PO DAILY 02/14/25 02/14/25 History Semaglutide [Ozempic] 2 mg SQ WE 02/14/25 02/14/25 History Allergies Allergy/AdvReac Type Severity Reaction Status Date / Time No Known Allergies Allergy Verified 02/14/25 18:28 Surgical - Exam Vital Signs Temp Pulse Resp BP Pulse Ox 97.9 F 92 20 107/69 96 02/14/25 14:34 02/14/25 14:34 02/14/25 14:34 02/14/25 14:34 02/14/25 14:34 CONSTITUTIONAL: Awake and alert, appears comfortable, cooperative, no pain, no acute distress but short of breath EYES: Pupils equal, round, reactive to light, normal ocular movement ENT: Moist mucous membranes without oral lesions present NECK: No masses, no bruits, trachea midline RESPIRATORY: Lungs sounds very diminished on the left. Respirations even, nonlabored. Currently on 3 LPM NC with oxygen saturation 93%. Strong cough CARDIOVASCULAR: S1, S2 present. Regular rate and rhythm. Palpable peripheral pulses bilaterally. Trace bilateral lower extremity edema present. No calf pain or tenderness noted GASTROINTESTINAL: Abdomen soft, nontender, nondistended without masses or organomegaly noted. There is no rebound or guarding present. Active bowel sounds present 4 quadrants. GENITOURINARY: Deferred INTEGUMENTARY: Skin is warm and dry NEUROLOGIC: Cranial nerves II through XII intact, normal coordination, no obvious motor or sensory deficits, speech is normal MUSKULOSKELETAL: Able to move all extremities, strength equal bilaterally, normal posture PSYCHIATRIC: Alert and oriented to person place and time, appropriate affect, intact judgment and insight Results - Labs 02/14/25 14:53 02/15/25 05:35 Abnormal Lab Results - Last 24 Hours (Table) 02/14/25 02/14/25 02/14/25 Range/Units 14:53 14:53 21:23 RBC 3.88 L (4.40-5.60) 10*6/uL MCV 103.9 H (80.0-97.0) fL MCH 34.0 H (27.0-32.0) pg Lymphocytes # 0.43 L (0.90-5.00) 10*3/uL Glucose 174 H (74-99) mg/dL POC Glucose (mg/dL) 156 H (70-110) mg/dL Total Protein 5.7 L (6.3-8.2) g/dL Albumin 3.2 L (3.5-5.0) g/dL Diabetes panel 02/14/25 Range/Units 14:53 Sodium 138 (137-145) mmol/L Potassium 4.3 (3.5-5.1) mmol/L Chloride 102 (98-107) mmol/L Carbon Dioxide 29 (22-30) mmol/L BUN 19 (9-20) mg/dL Creatinine 1.19 (0.66-1.25) mg/dL Glucose 174 H (74-99) mg/dL Calcium 8.9 (8.4-10.2) mg/dL AST 26 (17-59) U/L ALT 30 (4-49) U/L Alkaline Phosphatase 82 (38-126) U/L Total Protein 5.7 L (6.3-8.2) g/dL Albumin 3.2 L (3.5-5.0) g/dL Calcium panel 02/14/25 Range/Units 14:53 Calcium 8.9 (8.4-10.2) mg/dL Albumin 3.2 L (3.5-5.0) g/dL Pituitary panel 02/14/25 Range/Units 14:53 Sodium 138 (137-145) mmol/L Potassium 4.3 (3.5-5.1) mmol/L Chloride 102 (98-107) mmol/L Carbon Dioxide 29 (22-30) mmol/L BUN 19 (9-20) mg/dL Creatinine 1.19 (0.66-1.25) mg/dL Glucose 174 H (74-99) mg/dL Calcium 8.9 (8.4-10.2) mg/dL Adrenal panel 02/14/25 Range/Units 14:53 Sodium 138 (137-145) mmol/L Potassium 4.3 (3.5-5.1) mmol/L Chloride 102 (98-107) mmol/L Carbon Dioxide 29 (22-30) mmol/L BUN 19 (9-20) mg/dL Creatinine 1.19 (0.66-1.25) mg/dL Glucose 174 H (74-99) mg/dL Calcium 8.9 (8.4-10.2) mg/dL Total Bilirubin 0.4 (0.2-1.3) mg/dL AST 26 (17-59) U/L ALT 30 (4-49) U/L Alkaline Phosphatase 82 (38-126) U/L Total Protein 5.7 L (6.3-8.2) g/dL Albumin 3.2 L (3.5-5.0) g/dL - Imaging Chest x-ray: report reviewed, image reviewed EKG: image reviewed Assessment and Plan Assessment: Recurrent left sided pleural effusion, last drained a few days ago for 2 liters Stage IV lung cancer, status post chemo/radiation/immunotherapy Acute hypoxic respiratory failure Shortness of breath, secondary to above History of tobacco dependence with cessation more than 17 years ago COPD on home oxygen PRN Pulmonary fibrosis GIANLUCA with home cpap use CAD with previous ME HTN HLD Multiple TIAs on Eliquis outpatient DM CKD stage III Plan: The patient was seen and examined laying in bed on the medical oncology unit in no acute distress but clearly short of breath. Chart/diagnostics were reviewed. The case was discussed in detail with Dr. Valera last night. The usual perioperative course of pleurx catheter placement was discussed with the patient, will discuss in more detail when family is present. Continue to hold Eliquis, last dose was 02/14/25 in the morning. Patient will be seen today by Dr. Valera for recommendations. If patient becomes significantly symptomatic and can't wait for pleurx catheter placement consideration should be given for repeat thoracentesis. Medical management per primary care, oncology, pulmonology. Thank you for this consult, we will continue to follow along and make further recommendations as appropriate. I have personally seen and examined the patient, performed the documentation and the assessment and plan as written. Number of minutes spent on the visit: 30. FRANKI Wilburn Attending Addendum: seen today with and family friend at bedside. Patient breathing comfortable on nasal canula. Holding eliquis. A pleurex for recurrent effusion in setting of stage IV NSCLC is reasonable especially given how quickly he filled up after last tap, working to find OR time, thank you for your understanding
[2025-02-15 08:17] LABS: Anion Gap 8.20 mmol/L (4.00-12.00); BUN/Creat Ratio 14.08 Ratio (12.00-20.00); Blood Urea Nitrogen 16.9 mg/dL (9.0-27.0); Calcium 8.5 mg/dL (8.7-10.3); Carbon Dioxide 26.8 mmol/L (21.6-31.8); Chloride 104 mmol/L (96-109); Glucose 127 mg/dL (70-110); Potassium 4.5 mmol/L (3.5-5.5); Sodium 139 mmol/L (135-145)
[2025-02-15] MEDS: PSYLLIUM HUSK 100% 6 GM PACKET PO SCH (09:01)
[2025-02-15] MEDS: INSULIN GLARGINE (LANTUS) 100 UNIT/ML SYR SQ SCH (09:01)
[2025-02-15] MEDS: CYANOCOBALAMIN 500 MCG TAB PO SCH (09:02)
[2025-02-15] MEDS: CHOLECALCIFEROL 25 MCG (1000 IU) TABLET PO SCH (09:02)
[2025-02-15] MEDS: ATORVASTATIN 20 MG TAB PO SCH (09:02)
[2025-02-15 13:01] LABS: Glucose,Whole Blood 112 mg/dL (70-110)
[2025-02-15 17:22] LABS: Glucose,Whole Blood 130 mg/dL (70-110)
[2025-02-15 20:18] LABS: Glucose,Whole Blood 200 mg/dL (70-110)
--- NOTE | 2025-02-16 05:56 | P.PN ---
Subjective Progress Note Date: 02/15/25 Patient is a 74-year-old male with a past medical history of metastatic lung cancer with prior thoracentesis, diabetes type 2, hypertension, hyperlipidemia, history of CVA/TIA, obstructive sleep apnea on CPAP, pulmonary fibrosis CKD stage III and prior history of smoking. Patient was sent to ER from his oncologist office due to shortness of breath and left-sided pleural effusion. Patient initially presented due to difficulty in breathing which has been worsening. Patient was sent to ER due to recurrent pleural effusion. Otherwise patient denied any complaints of fever or chills. Mild cough without any sputum production. No complaints of chest pain. Denies any worsening leg swelling. No nausea vomiting abdominal pain or diarrhea. Chest x-ray showed large left pleural effusion. EKG showed sinus rhythm. Laboratory data showed WBC 7.2, hemoglobin 13.2 and platelets 205 MCV 103.9, sodium 138 potassium 4.3 chloride 102 bicarb is 29 BUN 19 and creatinine 1.19 and blood sugar 174. Albumin 3.2 Influenza A B RSV and COVID-19 PCR not detected. 02/15/2025 Patient is seen in follow-up this morning continues on 3 L of oxygen via nasal cannula is dyspneic on exam and continues to be winded with exertion and is also dyspneic while talking. Patient is recent thoracentesis with approximately 2.1 L removed with pulmonary following. CT surgery following as well discussing possible Pleurx catheter placement for recurrent effusions. Oncology following as well as patient has stage IV lung cancer and this was discussed in detail with family at the bedside today. Patient was on Eliquis which is being held currently and discussing possible repeat thoracentesis as the left side has filled up again. Possible thoracentesis in the next 24 hours and will discuss with pulmonary as patient is asking if he can be discharged after thoracentesis to home. Patient reports he will be following up outpatient in the next few days for possible Pleurx catheter placement. Patient is currently afebrile with no reports of chest pain or palpitations. Patient reports to tolerating diet with no reported nausea or vomiting. Patient reports has been up and walking to the bathroom although does become dyspneic. Review of systems: Constitutional: No reports of fatigue, fever, or chills Cardiovascular: No reports of chest pain or palpitations Respiratory: reports of continued shortness of breath, occasional cough GI: No reports of nausea, vomiting, or diarrhea : No reports of dysuria or retention Neurovascular: No reports of weakness or numbness All medications have been reviewed PHYSICAL EXAMINATION: Patient is sitting up at the edge of the bed, no acute distress, awake alert and oriented.. Well-developed, elderly appearing, obese, ill-appearing, 3 L nasal cannula noted HEENT: Normocephalic. Neck is supple. Pupils reactive. Nostrils clear. Oral cavity is moist. Neck reveals no JVD, carotid bruits, or thyromegaly. CHEST EXAMINATION: Trachea is central. Symmetrical expansion. Diminished breath sounds bilaterally with significant left lower lungs diminished breath sounds. No wheezing or rhonchi. Nonlabored breathing. CARDIAC: S1, S2 are muffled ABDOMEN: Soft. Obese. Bowel sounds normal. No organomegaly. No abdominal bruits. Extremities: Bilateral lower extremity trace edema, improving. No clubbing or cyanosis Neurologically awake, alert, oriented x3 with well-coordinated movements. No focal deficits noted Skin: No rash or skin lesions. Psychiatric: Cooperative. Non-suicidal Musculoskeletal: No joint swelling or deformity. Normal range of motion. Assessment: Large left pleural effusion with worsening shortness of breath s/p thoracentesis on the left, discussing another thoracentesis and possible Pleurx catheter placement Acute on chronic hypoxic respiratory failure, uses oxygen outpatient at 3 L Prior history of thoracentesis with 2 L fluid removal Metastatic lung cancer, stage IV Diabetes type 2 uncontrolled with hyperglycemia Hyperlipidemia History of CVA/TIA Obstructive sleep apnea on CPAP CKD stage III Prior history of smoking Obesity with a BMI 34.7 DVT prophylaxis with heparin subcu GI prophylaxis Full code Plan: Patient will be continued on home medication including Lasix. Oxygen supplementation as needed. Patient has been chronically using [address] surgery and pulmonary following for evaluation and possible Pleurx catheter placement. Patient had been taking Eliquis which is on hold and discussing possible Pleurx catheter placement although may require an additional thoracentesis as patient's left lung is filling up again. Patient may have thoracentesis with close outpatient follow-up for Pleurx catheter placement in the next few days. Patient would like to go home and will discuss further with pulmonary and CT surgery regarding treatment plan and discharge planning Continue insulin sliding scale along with home dose of Lantus 28 units subcu daily. Adjust accordingly Overall prognosis is guarded. Oncology discussed diagnoses with family at bedside and patient verbalized he is stage IV lung cancer Patient remains full code The impression and plan of care has been dictated by Delma Hua, Nurse Practitioner as directed. Dr. Migel MD I have performed a history and examination and MDM of this patient, discussed the same with the dictator, and agree with the dictator's assessment and plan as written ,documented as a scribe. Based on total visit time, I have performed more than 50% of the visit. Objective - Vital Signs Vital signs: Vital Signs Temp 98.3 F 02/16/25 01:16 Pulse 89 02/16/25 01:16 Resp 16 02/16/25 01:16 BP 95/64 02/16/25 01:16 Pulse Ox 96 02/16/25 01:16 FiO2 Intake & Output 02/15/25 02/15/25 02/16/25 06:59 18:59 06:59 Intake Total 240 1440 Balance 240 1440 Weight 103.419 kg Intake: Oral 240 1440 Other: Voiding Method Toilet Toilet Toilet # Voids 1 3 - Labs CBC & Chem 7: 02/14/25 14:53 02/15/25 05:35 Labs: Abnormal Lab Results - Last 24 Hours (Table) 02/15/25 02/15/25 02/15/25 Range/Units 05:35 05:35 12:54 Glucose 127 H (70-110) mg/dL POC Glucose (mg/dL) 112 H (70-110) mg/dL Hemoglobin A1c 6.2 H (<=6.0) % Calcium 8.5 L (8.7-10.3) mg/dL 02/15/25 02/15/25 Range/Units 17:19 20:16 Glucose (70-110) mg/dL POC Glucose (mg/dL) 130 H 200 H (70-110) mg/dL Hemoglobin A1c (<=6.0) % Calcium (8.7-10.3) mg/dL
[2025-02-16 07:05] LABS: Glucose,Whole Blood 116 mg/dL (70-110)
[2025-02-16 07:22] LABS: ALT 27 U/L (4-49); AST 27 U/L (17-59); African American GFR (CKD) 82 (>60 ml/min/1.73 sqM); Albumin 2.7 g/dL (3.5-5.0); Albumin/Globulin Ratio 1.1; Alkaline Phosphatase 66 U/L (38-126); Anion Gap 4 mmol/L; Blood Urea Nitrogen 19 mg/dL (9-20); Calcium 9.0 mg/dL (8.4-10.2); Carbon Dioxide 26 mmol/L (22-30); Chloride 107 mmol/L (98-107); Globulin 2.4 g/dL; Glucose 113 mg/dL (74-99); Magnesium 2.2 mg/dL (1.6-2.3); Non-African American GFR(CKD) 71 (>60 ml/min/1.73 sqM); Potassium 4.9 mmol/L (3.5-5.1); Sodium 137 mmol/L (137-145); Total Protein 5.1 g/dL (6.3-8.2)
--- NOTE | 2025-02-16 07:32 | P.CONS ---
History of Present Illness - Reason for Consult Consult date: 02/15/25 lung cancer Requesting physician: Pedro Gandhi - Chief Complaint SOB - History of Present Illness Patient is a 74-year-old male who initially was referred to our clinic for small IgA lambda monoclonal gammopathy who follows with Dr. Yumiko Muñoz. He was placed in observation for the same. In July 2024 he was found to have a left lower lobe 1.8 cm nodule, positive by PET scan with left hilar lymphadenopathy. He had attempted bronchoscopy with biopsy which was negative. Had CT-guided core biopsy which was positive for lung adenocarcinoma. He completed concurrent XRT/chemotherapy. PET/CT showed decreased size of known disease. FDG activity significantly reduced. He recently started Imfinzi, completing cycle 1 on 01/17/2025. He was seen in follow-up in our clinic he was complaining of worsening shortness of breath and associated intermittent chest pressure.. He was subsequently sent for CT of the chest to further evaluate. CT chest showed large left pleural effusion with compressive atelectasis, consolidative area with calcifications in the perihilar region and suspected obstructing lesion of the left lower lobe bronchus. He was thus sent to the ER for further evaluation and management. He was admitted to [facility] and underwent left thoracentesis on 02/10/2025 with 2 L of bloody fluid removed. Unfortunately cytology was positive for metastatic adenocarcinoma. Patient followed up in clinic and PET scan obtained on 01/20/2025 was reviewed which unfortunately showed disease progression, with FDG avid osseous lesions involving the sternum left third rib and right scapula. With improvement of FDG activity in left lower lobe pulmonary nodule. As well as improvement and mediastinal lymph nodes. Also showed moderate FDG activity along the left pleural space, suspicious for pleural metastatic disease. Patient was found to have significantly diminished left lung sounds and was having persisting shortness of breath at which time he was sent to the ER for admission to be evaluated for thoracentesis versus Pleurx placement. On admit chest x-ray showed large left pleural effusion. Pulmonology and cardiothoracic surgery have been consulted. His Eliquis dose has been held and hoping for Pleurx drain placement in the next 24 to 48 hours. Review of Systems 10 point ROS is negative except as stated in the HPI Past Medical History Past Medical History: Coronary Artery Disease (CAD), Cancer, COPD, CVA/TIA, Diabetes Mellitus, Hyperlipidemia, Hypertension, Myocardial Infarction ([place]), Osteoarthritis (OA), Renal Disease, Sleep Apnea/CPAP/BIPAP Additional Past Medical History / Comment(s): TIA X6, PULMONARY FIBROSIS, O2 NEEDED, C PAP MACHINE, CHRONIC KIDNEY STAGE 3, stage IV lung cancer, recurrent left sided pleural effusion Last Myocardial Infarction Date:: 1985 History of Any Multi-Drug Resistant Organisms: None Reported Past Surgical History: Joint Replacement, Tonsillectomy Additional Past Surgical History / Comment(s): RIGHT TOTAL HIP, LEFT TOTAL HIP REPLACEMENT, INGUINAL HERNIA X 4, CYST REMOVED FROM SCALP; left sided thoracentesis Past Anesthesia/Blood Transfusion Reactions: No Reported Reaction Smoking Status: Former smoker Past Alcohol Use History: None Reported Past Drug Use History: None Reported - Past Family History Father Additional Family Medical History / Comment(s): Patient was adopted and does not know his biological family history. Son(s) Family Medical History: Cancer Additional Family Medical History / Comment(s): Patient has one son has been diagnosed with bladder cancer. Patient has one daughter with no major medical problems. Medications and Allergies Home Medications Medication Instructions Recorded Confirmed Type Furosemide [Lasix] 40 mg PO DAILY PRN 07/27/17 02/14/25 History Magnesium Oxide 400 mg PO HS 07/27/17 02/14/25 History Psyllium [place] [Metamucil] 1.6 gm PO DAILY 07/27/17 02/14/25 History Apixaban [Eliquis] 5 mg PO BID 09/17/21 02/14/25 History Metoprolol Tartrate 50 mg PO BID 09/17/21 02/14/25 History Tiotropium [place] [Spiriva] 2 puff INHALATION RT-DAILY 09/17/21 02/14/25 History Zolpidem [Ambien] 5 mg PO HS 09/17/21 02/14/25 History Amitriptyline HCl [Elavil] 100 mg PO HS 02/14/25 02/14/25 History Ammonium Lactate Lotion 1 applic TOPICAL BID 02/14/25 02/14/25 History [Lac-Hydrin 12% Lotion] Cholecalciferol (Vitamin D3) 50 mcg PO DAILY 02/14/25 02/14/25 History [Vitamin D3 (50 Mcg = 2000 Iu)] Cyanocobalamin [Vitamin B-12] 500 mcg PO DAILY 02/14/25 02/14/25 History Insulin Glargine,Hum.rec.anlog 28 units SQ DAILY 02/14/25 02/14/25 History [Lantus Solostar Pen] Metoprolol Tartrate 12.5 mg PO DAILY PRN 02/14/25 02/14/25 History Nitroglycerin Sl Tabs [Nitrostat] 0.4 mg SUBLINGUAL Q5M PRN 02/14/25 02/14/25 History Rosuvastatin [Crestor] 10 mg PO DAILY 02/14/25 02/14/25 History Semaglutide [Ozempic] 2 mg SQ WE 02/14/25 02/14/25 History Allergies Allergy/AdvReac Type Severity Reaction Status Date / Time No Known Allergies Allergy Verified 02/14/25 18:28 Physical Exam Vitals: Vital Signs Temp Pulse Pulse Resp BP BP Pulse Ox 02/15/25 08:00 97.6 F 93 18 114/76 94 L 02/15/25 07:49 96 02/15/25 04:38 18 93 L 02/15/25 00:59 97.8 F 85 20 113/72 90 L 02/14/25 18:46 98.4 F 98 18 117/78 96 02/14/25 18:00 98.2 F 95 18 104/68 94 L 02/14/25 16:52 93 20 101/66 98 02/14/25 15:30 92 18 133/73 95 02/14/25 14:52 20 02/14/25 14:38 93 20 121/79 97 02/14/25 14:34 97.9 F 92 20 107/69 96 Intake and Output 02/14/25 02/15/25 02/15/25 22:59 06:59 14:59 Intake Total 240 240 Balance 240 240 Intake: Oral 240 240 Other: Voiding Method Toilet Toilet # Voids 1 Weight 103.419 kg - Constitutional General appearance: average body habitus, no acute distress - EENT Eyes: anicteric sclerae, EOMI ENT: hearing grossly normal - Respiratory Respiratory: left: diminished - Cardiovascular Rhythm: irregularly irregular - Gastrointestinal General gastrointestinal: soft, no tenderness - Integumentary Integumentary: no cyanotic, no jaundiced - Psychiatric Psychiatric: A&O x's 3 Results CBC & Chem 7: 02/14/25 14:53 02/16/25 06:42 Labs: Abnormal Lab Results - Last 24 Hours (Table) 02/14/25 02/14/25 02/14/25 Range/Units 14:53 14:53 21:23 RBC 3.88 L (4.40-5.60) 10*6/uL MCV 103.9 H (80.0-97.0) fL MCH 34.0 H (27.0-32.0) pg Lymphocytes # 0.43 L (0.90-5.00) 10*3/uL Glucose 174 H (74-99) mg/dL POC Glucose (mg/dL) 156 H (70-110) mg/dL Hemoglobin A1c (<=6.0) % Calcium (8.7-10.3) mg/dL Total Protein 5.7 L (6.3-8.2) g/dL Albumin 3.2 L (3.5-5.0) g/dL 02/15/25 02/15/25 Range/Units 05:35 05:35 RBC (4.40-5.60) 10*6/uL MCV (80.0-97.0) fL MCH (27.0-32.0) pg Lymphocytes # (0.90-5.00) 10*3/uL Glucose 127 H (74-99) mg/dL POC Glucose (mg/dL) (70-110) mg/dL Hemoglobin A1c 6.2 H (<=6.0) % Calcium 8.5 L (8.7-10.3) mg/dL Total Protein (6.3-8.2) g/dL Albumin (3.5-5.0) g/dL Chest x-ray: report reviewed Assessment and Plan (1) Non-small cell lung cancer (NSCLC) Current Visit: Yes Status: Acute Code(s): C34.90 - MALIGNANT NEOPLASM OF UNSP PART OF UNSP BRONCHUS OR LUNG SNOMED Code(s): 679189128 (2) Recurrent left pleural effusion Current Visit: Yes Status: Acute Code(s): J90 - PLEURAL EFFUSION, NOT ELSEWHERE CLASSIFIED SNOMED Code(s): 71990506 Plan: Metastatic NSCLC, recurrent pleural effusion: Presented for SOB and recurrent pleural effusion. Patient had recent admit to [facility] and had left thoracentesis with 2L bloody fluid drained, which was positive for metastatic adenocarcinoma. PET CT on 01/20, showed progression of disease within the sternum, left 3rd rib and right scapula, and FDG activity along left pleural space. Previously known lung nodule and LAD showed positive treatment response -Oncology history as dictated in the HPI -S/p cycle 1 of Imfinzi on 01/17/25 -On admit chest x-ray showed large left pleural effusion. Pulmonology and cardiothoracic surgery have been consulted. His Eliquis dose has been held and hoping for Pleurx drain placement in the next 24-48 hours. -Guardant 360 has been ordered. Clinic f/u upon discharge to further discuss silas atment options Diagnosis, prognosis and oncology plan of care discussed in detail at today's visit. All questions and concerns were addressed Doctor attests: I performed a history and physical examination of this patient, developed impression and plan of care. Discussed with dictator. I agree with dictators note, documented as a scribe.
[2025-02-16 07:45] LABS: Basophils # (A) 0.04 10*3/uL (0.00-0.10); Basophils % (A) 0.6 %; Eosinophils # (A) 0.18 10*3/uL (0.04-0.35); Eosinophils % (A) 2.7 %; HCT 36.0 % (39.6-50.0); HGB 12.1 g/dL (13.0-17.0); Lymphocytes # (A) 0.67 10*3/uL (0.90-5.00); Lymphocytes % (A) 9.9 %; MCH 34.6 pg (27.0-32.0); MCHC 33.6 g/dL (32.0-37.0); MCV 102.9 fL (80.0-97.0); Monocytes # (A) 0.80 10*3/uL (0.20-1.00); Monocytes % (A) 11.9 %; Neutrophils # (A) 4.96 10*3/uL (1.80-7.70); Neutrophils % (A) 73.6 %; Platelet Count 179 10*3/uL (140-440); RBC 3.50 10*6/uL (4.40-5.60); RDW 13.2 % (11.5-14.5); WBC 6.74 10*3/uL (4.50-10.00)
[2025-02-16 07:54] VITALS: BP 107/73; PULSE 101; RESP 14; TEMP 97.9
--- NOTE | 2025-02-16 09:19 | XR ---
EXAMINATION TYPE: XR chest 1V portable DATE OF EXAM: 02/16/2025 8:56 AM COMPARISON: 02/14/2025 CLINICAL INDICATION: Male, 74 years old with history of Post left thoracentesis, , FINDINGS: Left heart margin obscured by adjacent pleural parenchymal opacity. Following thoracentesis, there is still a residual large left pleural effusion though with some improvement from prior. Right lung and pleural space appear clear. No appreciable pneumothorax. IMPRESSION: Decreased but still, residual large left pleural effusion following thoracentesis. No appreciable pne umothorax. [facility], Workstation: [facility], 02/16/2025 9:17 AM
--- NOTE | 2025-02-16 11:53 | P.PN ---
Subjective Progress Note Date: 02/16/25 Patient is a 74-year-old male with reported past medical history including hypertension, hyperlipidemia, diabetes mellitus, GIANLUCA with CPAP, former tobacco smoker, COPD. Follows with Dr. ED Herron for management of his pulmonary needs. Apparently, recently admitted at [facility] and underwent left- sided thoracentesis and a total of 2 L was removed. Per the patient it was cancer fluid. He states he has been diagnosed with lung cancer and on immunotherapy. Reportedly, follows with Dr. Muñoz. Developed progressive increased work of breathing since his hospital discharge. He was at his oncology office who recommended he come to the emergency department for evaluation. Chest x-ray showing a large left pleural effusion. CBC unremarkable for leukocytosis. Hemoglobin 13.2 g/dL. Platelets 205. CMP unremarkable, electrolytes WDL, creatinine 1.19, glucose 174. Lactic 1.8. LFTs unremarkable. Troponin less than 0.012. Viral screen for influenza A/B, RSV, COVID negative. Patient currently being seen on the oncology unit. He is resting comfortably on 3 L/min nasal cannula. States he has progressively been more short of breath since his hospital discharge. Denies any cough, sputum production, hemoptysis, pleurisy, fevers or chills, nausea or vomiting or diarrhea. Current vital signs: Temperature 97.8 F, heart rate 85 beats minute, blood pressure 113/72 mmHg, nontachypneic, SpO2 was recorded at 96% on 3 L/min nasal cannula. The patient is seen today February 16, 2025 in follow-up on the regular medical floor. He is currently sitting up at the bedside having breakfast. Awake and alert in no acute distress. Denies any worsening shortness of breath, cough or congestion. Maintaining good O2 saturations in the mid 90s on 3 L/min per nasal cannula. Has been afebrile. Hemodynamically stable. White count 6.7. Hemoglobin 12.1. Platelets 179. Sodium 137. Potassium 4.9. Bicarb 26. BUN 19. Creatinine 1.03. Glucose 113. He is on heparin for DVT prophylaxis. Eliquis remains on hold. Continued on Spiriva. Thoracic surgery unable to perform Pleurx catheter this week. Dr. Magallanes did perform a left-sided thoracentesis today with 3.5 L of bloody fluid returned. History of metastasis. Fluid not sent for analysis or cytology. Objective - Vital Signs Vital signs: Vital Signs Temp 97.9 F 02/16/25 07:05 Pulse 101 H 02/16/25 07:05 Resp 14 02/16/25 07:05 BP 107/73 02/16/25 07:05 Pulse Ox 95 02/16/25 07:05 FiO2 Intake & Output 02/15/25 02/16/25 02/16/25 18:59 06:59 18:59 Intake Total 1440 220 Balance 1440 220 Intake: Intake, IV Titration 220 Amount Sodium Chloride 0.9% 1, 220 000 ml @ 20 mls/hr IV . Q24H [facility] Rx#:[id number] Oral 1440 Other: Voiding Method Toilet Toilet # Voids 3 1 - Exam GENERAL EXAM: Alert, active, pleasant 74-year-old male, on 3 L nasal cannula, comfortable in no apparent distress. HEAD: Normocephalic. EYES: Normal reaction of pupils, equal size. NOSE: Clear with pink turbinates. THROAT: No erythema or exudates. NECK: No masses, no JVD. CHEST: No chest wall deformity. LUNGS: Equal air entry with diminished breath sounds throughout the left lung. CVS: S1 and S2 normal with no audible murmur, regular rhythm. ABDOMEN: No hepatosplenomegaly, normal bowel sounds, no guarding or rigidity. SPINE: No scoliosis or deformity SKIN: No rashes CENTRAL NERVOUS SYSTEM: No focal deficits, tone is normal in all 4 extremities. EXTREMITIES: There is no peripheral edema. No clubbing, no cyanosis. Peripheral pulses are intact. - Labs CBC & Chem 7: 02/16/25 06:43 02/16/25 06:42 Labs: Abnormal Lab Results - Last 24 Hours (Table) 02/15/25 02/15/25 02/15/25 Range/Units 12:54 17:19 20:16 RBC (4.40-5.60) 10*6/uL Hgb (13.0-17.0) g/dL Hct (39.6-50.0) % MCV (80.0-97.0) fL MCH (27.0-32.0) pg Immature Gran # (0.00-0.04) 10*3/uL Lymphocytes # (0.90-5.00) 10*3/uL Glucose (74-99) mg/dL POC Glucose (mg/dL) 112 H 130 H 200 H (70-110) mg/dL Total Protein (6.3-8.2) g/dL Albumin (3.5-5.0) g/dL 02/16/25 02/16/25 02/16/25 Range/Units 06:42 06:43 07:04 RBC 3.50 L (4.40-5.60) 10*6/uL Hgb 12.1 L (13.0-17.0) g/dL Hct 36.0 L (39.6-50.0) % MCV 102.9 H (80.0-97.0) fL MCH 34.6 H (27.0-32.0) pg Immature Gran # 0.09 H (0.00-0.04) 10*3/uL Lymphocytes # 0.67 L (0.90-5.00) 10*3/uL Glucose 113 H (74-99) mg/dL POC Glucose (mg/dL) 116 H (70-110) mg/dL Total Protein 5.1 L (6.3-8.2) g/dL Albumin 2.7 L (3.5-5.0) g/dL Assessment and Plan Assessment: Large left-sided pleural effusion s/p thoracentesis with 3.5 L of bloody fluid returned Acute hypoxemic respiratory failure, currently on 3 L/min nasal cannula, secondary to above Recently diagnosed metastatic lung cancer, per patient Chronic obstructive pulmonary disease, inactive Former tobacco smoker, quitting over 20 years ago Obstructive sleep apnea with home CPAP Hypertension History of hyperlipidemia Diabetes mellitus History of CVA/TIA Plan: The patient was seen and evaluated Chest x-ray, labs and medications reviewed Status post left-sided thoracentesis Follow-up chest x-ray shows no pneumothorax Still with significant pleural effusion Plan is for Pleurx catheter placement This may not be able to be done until next week Titrate the FiO2 as tolerated Increase his activity as tolerated We will continue to follow I have personally seen and examined the patient, performed the documentation and the assessment and plan as written. Number of minutes spent on the visit: 10 Dictation was produced using [employer] dictation software. Please excuse any grammatical, word or spelling errors.
[2025-02-16 12:15] LABS: Glucose,Whole Blood 96 mg/dL (70-110)
[2025-02-16 13:05] VITALS: BMI 34.7
--- NOTE | 2025-02-16 14:59 | OP ---
OPERATIVE REPORT DATE OF SERVICE : OPERATIVE REPORT: Left-sided thoracentesis. PREOPERATIVE DIAGNOSIS: Recurrent large malignant pleural effusion. POSTOPERATIVE DIAGNOSIS: Recurrent large malignant pleural effusion. ANESTHESIA: Used 4 mL of 2% lidocaine. DESCRIPTION OF PROCEDURE: The patient was placed in the sitting upright position, the area below the left scapula was prepared in a sterile fashion. Drapes were applied. At the level of the 8th intercostal space and tip of the scapula, the area was locally anesthetized with lidocaine and a 26-gauge needle was inserted at the same site advanced into the pleural space until fluid was obtained and the fluid was noted to be bloody. Then a small tiny incision was made at the same site, and a standard thoracentesis catheter and needle were introduced at the same site into the pleural space until the fluid was obtained, which was also again noted to be quite bloody. The catheter was advanced over the needle and the needle was pulled out of the pleural space. Freely flowing blood was draining from the left pleural space, a total of 3 L of bloody pleural effusion was removed from the left pleural space. The procedure was well tolerated, no complications, chest x-ray showed no evidence of complications after the procedure. No evidence of pneumothorax. However, the patient continues to have fairly good-sized pleural effusion, although the patient had 3 L drained from the left pleural space, and he had 2 L drained a few days ago by Dr. Herron at [facility]. No complications and the patient will be seen by Thoracic Surgery for potential PleurX catheter placement in the near future. MMODL / IJN: [id number] /
--- NOTE | 2025-02-16 16:43 | P.PN ---
Subjective Progress Note Date: 02/16/25 No acute events overnight. Left thoracentesis today, with 3L removed. Scheduled next week for pleurx drain with CTS Objective - Vital Signs Vital signs: Vital Signs Temp 97.9 F 02/16/25 07:05 Pulse 101 H 02/16/25 07:05 Resp 14 02/16/25 07:05 BP 107/73 02/16/25 07:05 Pulse Ox 95 02/16/25 07:05 FiO2 Intake & Output 02/15/25 02/16/25 02/16/25 18:59 06:59 18:59 Intake Total 1440 220 Balance 1440 220 Weight 103.419 kg Intake: Intake, IV Titration 220 Amount Sodium Chloride 0.9% 1, 220 000 ml @ 20 mls/hr IV . Q24H [facility] Rx#:[id number] Oral 1440 Other: Voiding Method Toilet Toilet # Voids 3 1 - Constitutional General appearance: Present: average body habitus, no acute distress - EENT Eyes: Present: anicteric sclerae, EOMI ENT: Present: hearing grossly normal - Respiratory Details: breathing is even and unlabored - Cardiovascular Details: skin warm and dry - Psychiatric Psychiatric: Present: A&O x's 3 - Labs CBC & Chem 7: 02/16/25 06:43 02/16/25 06:42 Labs: Abnormal Lab Results - Last 24 Hours (Table) 02/15/25 02/15/25 02/16/25 Range/Units 17:19 20:16 06:42 RBC (4.40-5.60) 10*6/uL Hgb (13.0-17.0) g/dL Hct (39.6-50.0) % MCV (80.0-97.0) fL MCH (27.0-32.0) pg Immature Gran # (0.00-0.04) 10*3/uL Lymphocytes # (0.90-5.00) 10*3/uL Glucose 113 H (74-99) mg/dL POC Glucose (mg/dL) 130 H 200 H (70-110) mg/dL Total Protein 5.1 L (6.3-8.2) g/dL Albumin 2.7 L (3.5-5.0) g/dL 02/16/25 02/16/25 Range/Units 06:43 07:04 RBC 3.50 L (4.40-5.60) 10*6/uL Hgb 12.1 L (13.0-17.0) g/dL Hct 36.0 L (39.6-50.0) % MCV 102.9 H (80.0-97.0) fL MCH 34.6 H (27.0-32.0) pg Immature Gran # 0.09 H (0.00-0.04) 10*3/uL Lymphocytes # 0.67 L (0.90-5.00) 10*3/uL Glucose (74-99) mg/dL POC Glucose (mg/dL) 116 H (70-110) mg/dL Total Protein (6.3-8.2) g/dL Albumin (3.5-5.0) g/dL Assessment and Plan (1) Non-small cell lung cancer (NSCLC) Status: Acute Code(s): C34.90 - MALIGNANT NEOPLASM OF UNSP PART OF UNSP BRONCHUS OR LUNG SNOMED Code(s): 216155133 (2) Recurrent left pleural effusion Status: Acute Code(s): J90 - PLEURAL EFFUSION, NOT ELSEWHERE CLASSIFIED SNOMED Code(s): 49090472 Plan: Metastatic NSCLC, recurrent pleural effusion: Presented for SOB and recurrent pleural effusion. Patient had recent admit to [facility] and had left thoracentesis with 2L bloody fluid drained, which was positive for metastatic adenocarcinoma. PET CT on 01/20, showed progression of disease within the sternum, left 3rd rib and right scapula, and FDG activity along left pleural space. Previously known lung nodule and LAD showed positive treatment response -Oncology history as dictated in the HPI -S/p cycle 1 of Imfinzi on 01/17/25 -On admit chest x-ray showed large left pleural effusion. Pulmonology and cardiothoracic surgery have been consulted. -S/p left thoracentesis today, with 3L removed. Scheduled next week for pleurx drain with CTS -Guardant 360 has been ordered. Clinic f/u upon discharge to further discuss treatment options Diagnosis, prognosis and oncology plan of care discussed in detail. All questions and concerns were addressed
--- NOTE | 2025-02-16 23:36 | P.DS ---
Providers Date of admission: 02/14/25 16:13 Expected date of discharge: 02/16/25 Attending physician: Tram Lainez Consults: 02/14/25 16:11 Consult Physician Routine Consulting Provider: Contreras Muñoz Consult Reason/Comments: onc care Do you want consulting provider notified?: Already Contacted Consult Physician Routine Consulting Provider: Dionisio Solis Consult Reason/Comments: left effusion, lung ca Do you want consulting provider notified?: Yes 02/14/25 16:36 Consult Physician Urgent Consulting Provider: Ray Valera Consult Reason/Comments: L effusion Do you want consulting provider notified?: Already Contacted Primary care physician: Felicity Miles [facility] Course: Final diagnosis Large left pleural effusion with worsening shortness of breath s/p thoracentesis on the left, status post thoracentesis of approximately 3 L today 02/16/2025 maintain mean Acute on chronic hypoxic respiratory failure, uses oxygen outpatient at 3 L Prior history of thoracentesis with 2 L fluid removal Metastatic lung cancer, stage IV Diabetes type 2 uncontrolled with hyperglycemia Hyperlipidemia History of CVA/TIA Obstructive sleep apnea on CPAP CKD stage III Prior history of smoking Obesity with a BMI 34.7 DVT prophylaxis with heparin subcu GI prophylaxis Full code Discharge disposition Patient is being discharged in a stable condition with guarded prognosis to home with home care. Patient will follow-up with Dr. Miles in the outpatient setting upon discharge. Patient is to continue with close outpatient follow-up with CT surgery next week as scheduled for Pleurx catheter placement. Patient to hold anticoagulant until follow-up with CT surgery. Total time taken is greater than 35 minutes. Hospital course This is a 74-year-old male who was recently admitted with increasing shortness of breath with large left pleural effusion with recurrent effusion. Patient was recently at [facility] and had a thoracentesis and unfortunately is filling up again. Will consultations following including CT surgery, pulmonary, oncology and patient does have stage IV lung cancer. Patient did undergo left- sided thoracentesis with Dr. Perdue at the bedside today with approximately 3 L removed. Patient to follow-up with CT surgery this week regarding Pleurx catheter placement. Patient reports to feeling significantly improved and would like to go home. Patient has been cleared by consultations with close outpatient follow-up. Please refer to consultation notes for further HPI. Currently no reports of chest pain, no worsening shortness of breath, or palpitations. Patient is afebrile. No reports of nausea or vomiting and patient is tolerating diet. Patient will be discharged home with home care today. Guarded prognosis and high risk for readmissions given significant comorbidities Physical exam: Gen: This is a 74-year-old male who is awake, alert and oriented x 3, well- developed, elderly appearing, ill-appearing, obese HEENT: Head is atraumatic, normocephalic. Pupils equal, round. Sclerae is anicteric. NECK: Supple. No JVD. No lymphadenopathy. No thyromegaly. LUNGS: Diminished breath sounds bilaterally worse on the left with some improvement in irrigation status post thoracentesis today. No intercostal retractions. HEART: S1, S2 are muffled ABDOMEN: Soft. Obese. Bowel sounds are present. No masses. No tenderness. EXTREMITIES: No pedal edema. No calf tenderness. NEUROLOGICAL: Patient is awake, alert and oriented x3. Cranial nerves 2 through 12 are grossly intact. Please refer to medication reconciliation sheet for a list of medications. The impression and plan of care has been dictated by Delma Hua, Nurse Practitioner as directed. Dr. Cabrera MD I have performed a history and examination and MDM of this patient, discussed the same with the dictator, and agree with the dictator's assessment and plan as written ,documented as a scribe. Based on total visit time, I have performed more than 50% of the visit. Patient Condition at Discharge: Fair Plan - Discharge Summary Discharge Rx Participant: No New Discharge Prescriptions: New Acetaminophen Tab [Tylenol] 650 mg PO Q6HR PRN tab PRN Reason: Mild Pain Or Fever > 100.5 Continue Magnesium Oxide 400 mg PO HS Furosemide [Lasix] 40 mg PO DAILY PRN PRN Reason: Edema Psyllium Husk [Metamucil] 1.6 gm PO DAILY Zolpidem [Ambien] 5 mg PO HS Rosuvastatin [Crestor] 10 mg PO DAILY Nitroglycerin Sl Tabs [Nitrostat] 0.4 mg SUBLINGUAL Q5M PRN PRN Reason: Chest Pain Metoprolol Tartrate 12.5 mg PO DAILY PRN PRN Reason: STRENUOUS ACTIVITY Insulin Glargine,Hum.rec.anlog [Lantus Solostar Pen] 28 units SQ DAILY Cyanocobalamin [Vitamin B-12] 500 mcg PO DAILY Cholecalciferol (Vitamin D3) [Vitamin D3 (50 Mcg = 2000 Iu)] 50 mcg PO DAILY Apixaban [Eliquis] 5 mg PO BID Metoprolol Tartrate 50 mg PO BID Tiotropium Adolphus [Spiriva] 2 puff INHALATION RT-DAILY Semaglutide [Ozempic] 2 mg SQ WE Ammonium Lactate Lotion [Lac-Hydrin 12% Lotion] 1 applic TOPICAL BID Amitriptyline HCl [Elavil] 100 mg PO HS Discharge Medication List Furosemide [Lasix] 40 mg PO DAILY PRN 07/27/17 [History] Magnesium Oxide 400 mg PO HS 07/27/17 [History] Psyllium Husk [Metamucil] 1.6 gm PO DAILY 07/27/17 [History] Apixaban [Eliquis] 5 mg PO BID 09/17/21 [History] Metoprolol Tartrate 50 mg PO BID 09/17/21 [History] Tiotropium Adolphus [Spiriva] 2 puff INHALATION RT-DAILY 09/17/21 [History] Zolpidem [Ambien] 5 mg PO HS 09/17/21 [History] Amitriptyline HCl [Elavil] 100 mg PO HS 02/14/25 [History] Ammonium Lactate Lotion [Lac-Hydrin 12% Lotion] 1 applic TOPICAL BID 02/14/25 [History] Cholecalciferol (Vitamin D3) [Vitamin D3 (50 Mcg = 2000 Iu)] 50 mcg PO DAILY 02/14/25 [History] Cyanocobalamin [Vitamin B-12] 500 mcg PO DAILY 02/14/25 [History] Insulin Glargine,Hum.rec.anlog [Lantus Solostar Pen] 28 units SQ DAILY 02/14/25 [History] Metoprolol Tartrate 12.5 mg PO DAILY PRN 02/14/25 [History] Nitroglycerin Sl Tabs [Nitrostat] 0.4 mg SUBLINGUAL Q5M PRN 02/14/25 [History] Rosuvastatin [Crestor] 10 mg PO DAILY 02/14/25 [History] Semaglutide [Ozempic] 2 mg SQ WE 02/14/25 [History] Acetaminophen Tab [Tylenol] 650 mg PO Q6HR PRN tab 02/16/25 [Rx] Follow up Appointment(s)/Referral(s): Roger Mir [STAFF PHYSICIAN] - 1 Week ( Oncologist please call the office to schedule a follow up appointment) Felicity Miles MD [Primary Care Provider] - 1-2 days ( Medical Doctor please call the office to schedule a follow up appointment) [facility], [NON-STAFF] - 1 Week Ray Valera MD [STAFF PHYSICIAN] - (The thoracic surgery office will call you in the next 24-48 hours to let you know when we will be able to insert your Pleurx catheter, which should be next week. Please call with any questions) Patient Instructions/Handouts: Pleural Effusion (DC), Thoracentesis (DC) Activity/Diet/Wound Care/Special Instructions: Activity limited until follow-up Follow-up with primary care provider on discharge Follow-up with oncology outpatient Follow-up with cardio-thoracic surgery as discussed and scheduled for possible Pleurx catheter placement Continue current medications Discharge Disposition: HOME WITH HOME HEALTH SERVICES
== END 2025-02-16 13:56 | disposition home health service (06) | DRG 180 ==
LOC: EC 14:33 → 4SSUR 16:13 → 5NMEDONC 16:41
PROVIDERS: ADMIT Internal Medicine; ATTEND Internal Medicine
PROC: 0W9B3ZZ Drainage of Left Pleural Cavity, Percutaneous Approach (ICD-10-PCS; principal; 2025-02-16)
DX: C78.2 Secondary malignant neoplasm of pleura (principal); J96.21 Acute and chronic respiratory failure with hypoxia; J91.0 Malignant pleural effusion; C34.92 Malignant neoplasm of unspecified part of left bronchus or lung; E11.65 Type 2 diabetes mellitus with hyperglycemia; J44.9 Chronic obstructive pulmonary disease, unspecified; N18.30 Chronic kidney disease, stage 3 unspecified; I12.9 Hypertensive chronic kidney disease with stage 1 through stage 4 chronic kidney disease, or unspecified chronic kidney disease; E66.9 Obesity, unspecified; E11.22 Type 2 diabetes mellitus with diabetic chronic kidney disease; J84.10 Pulmonary fibrosis, unspecified; Z79.4 Long term (current) use of insulin; E78.5 Hyperlipidemia, unspecified; G47.33 Obstructive sleep apnea (adult) (pediatric); I25.10 Atherosclerotic heart disease of native coronary artery without angina pectoris; Z68.34 Body mass index [BMI] 34.0-34.9, adult; I25.2 Old myocardial infarction; Z80.52 Family history of malignant neoplasm of bladder; Z79.01 Long term (current) use of anticoagulants; Z87.891 Personal history of nicotine dependence; Z98.1 Arthrodesis status; Z99.81 Dependence on supplemental oxygen; Z86.73 Personal history of transient ischemic attack (TIA), and cerebral infarction without residual deficits; Z79.82 Long term (current) use of aspirin; Z79.84 Long term (current) use of oral hypoglycemic drugs; Z79.51 Long term (current) use of inhaled steroids; Z79.899 Other long term (current) drug therapy; Z96.643 Presence of artificial hip joint, bilateral; Z92.21 Personal history of antineoplastic chemotherapy; Z92.3 Personal history of irradiation
CPT/HCPCS: 36415; 71045; 71046; 80048; 80053; 83036; 83605; 83735; 84484; 85025; 85610; 85730; 87636; 93005; 94640; 94760; 99285

== ENCOUNTER 2025-02-21 12:31 | Day surgery (SDC) | payer MEDICARE, BC ==
[2025-02-17 11:04] VITALS: BMI 34.7
[~2025-02-21 12:31] MED LIST changes: +HYDROmorphone 0.5 MG/0.5 ML SYRINGE IVP PRN; -LACTATED RINGERS 1,000 ML IV SCH; -LIDOCAINE 1% (10MG/ML) FOR IV START INTRADERMA PRN; +Pre Op ABX Message 1 EACH MISC MISCELLANE ONE; -TETRACAINE 0.5% OPHTH (PF) DROPS 4 ML BTL OP PRN
[2025-02-21] MEDS ORDERED: LACTATED RINGERS 1,000 ML IV SCH (12:51)
[2025-02-21] MEDS: IV FLUID CONTINUATION 1,000 ML IV ONE (12:51)
[2025-02-21] MEDS ORDERED: MIDAZOLAM 2 MG/2 ML VIAL IV PRN (12:51)
[2025-02-21 13:21] LABS: Glucose,Whole Blood 81 mg/dL (70-110)
[2025-02-21] MEDS: LACTATED RINGERS 1,000 ML IV SCH (13:23)
[2025-02-21] MEDS: DEXTROSE 50% SYRINGE 50 ML IVP STA (13:24)
[2025-02-21] MEDS: ONDANSETRON 4 MG/2 ML VIAL IVP STA (13:26)
[2025-02-21] MEDS: DEXAMETHASONE SOD PHOSPHATE 4 MG/ML 1 ML VIAL IVP STA (13:27)
[2025-02-21 13:42] LABS: Glucose,Whole Blood 110 mg/dL (70-110)
[2025-02-21] MEDS ORDERED: fentaNYL (PF) 50 MCG/ML 2 ML AMP ONE (13:46)
[2025-02-21] MEDS ORDERED: PROPOFOL 10 MG/ML 20 ML VIAL IV ONE (13:46)
[2025-02-21] MEDS ORDERED: MIDAZOLAM 2 MG/2 ML VIAL ONE (13:46)
[2025-02-21] MEDS ORDERED: KETAMINE HCL IN 0.9 % NACL 50 MG/5 ML SYRINGE ONE (13:46)
[2025-02-21] MEDS: SODIUM CHLORIDE 0.9% 100 ML with ceFAZolin 2,000 MG IV ONE (13:51)
[2025-02-21] MEDS: LIDOCAINE 1% INJ 10MG/ML (20 ML MDV) SQ ONE ×2 (14:04)
[2025-02-21 14:48] VITALS: RESP 16
[2025-02-21 14:54] LABS: Glucose,Whole Blood 103 mg/dL (70-110)
--- NOTE | 2025-02-21 15:01 | FL ---
EXAMINATION TYPE: FL guidance operating room Intraoperative/procedural fluoroscopic services were pro vided. CLINICAL INDICATION:Male, 74 years old with history of PLEURX CATHETER PLACEMENT; , [facility] FINDINGS: Fluoroscopic images demonstrating left Pleurx catheter placement. No radiographic evidence for compli cation. Total fluoroscopy time is 5.4 seconds. DAP: 1.0541 Gycm2 Please see the operative/procedural note for further details. [facility], , 02/21/2025 2:59 PM
--- NOTE | 2025-02-21 15:26 | P.OP ---
Date of Procedure: 02/21/25 Preoperative Diagnosis: malignant pleural effusion Postoperative Diagnosis: malignant pleural effusion Procedure(s) Performed: Left Pleurex Catheter Insertion Implants: pleurex catheter Anesthesia: MAC Surgeon: Ray Valera [employer]1: Leanna Nava Estimated Blood Loss (ml): 5 IV fluids (ml): 400 Pathology: none sent Condition: stable Disposition: PACU Indications for Procedure: 74M with metastatic NSCLC with recurrent left pleural effusion requiring drainage every 3 days presented for pleurex placement Operative Findings: Left malignant pleural effusion Description of Procedure: The patient was placed supine on the table and given sedation. The left chest was prepped and draped in the usual fashion. A c arm took an xray of the left ch est showing pleural space 3/4 full of fluid. Lidocaine was used over the catheter insertion and exit sites on the left lateral chest and incisions were made. A needle was used to access the left pleural space. A guide wire was inserted and xray showed guide wire traveling to apex in pleural space. The pleurex catheter was tunneled from the exit site to the insertion site. The cuff was less than 1cm from the exit site to allow for future removal in clinic if needed. A dilator was placed over the guidewire and then the pleurex placed into the pleural space with a peel away sheeth. The pleurex was then accessed and drained 3.5L. Follow up CXR showed clear lung field to the costophrenic angle and re-expansion of the left lung. The pleurex was sutured in at the exit site. Absorbable suture and skin glue were used over the insertion incision. The pleurex was capped and dressed sterile. The patient tolerated the procedure well and was brought to pacu in stable condition. The family was updated in person after the procedure. Dr. Nava was present for proctoring the case.
[2025-02-21 15:35] VITALS: BP 108/64; PULSE 98
--- NOTE | 2025-02-21 15:35 | XR ---
EXAMINATION TYPE: XR chest 1V portable DATE OF EXAM: 02/21/2025 3:27 PM COMPARISON: Chest radiographs from 02/16/2025, fluoroscopic images 02/21/2025 TECHNIQUE: XR chest 1V portable Portable AP radiograph of the chest. CLINICAL INDICATION:Male, 74 years old with history of post pleurx; FINDINGS: Lungs/Pleura: Minimal right basilar atelectasis. No discrete pneumothorax. Decrease in now small left pleural effusion with adjacent atelectasis/consolidation. Medial right upper calcified granuloma. Pulmonary vascularity: Unremarkable. Heart/mediastinum: Cardiomediastinal silhouette is unremarkable. Musculoskeletal: No acute osseous pathology. Other findings: None Lines/Tubes: Interval placement of a left-sided Pleurx catheter with tip directed towards the left lung apex. IMPRESSION: Interval placement of a left-sided Pleurx catheter with tip directed towards the left lung apex. Decr eased now small left pleural effusion and adjacent atelectasis/consolidation. No discrete pneumothora x. [facility], , 02/21/2025 3:33 PM
== END 2025-02-21 15:57 | disposition home health service (06) ==
LOC: OR 12:31
PROVIDERS: ATTEND Student in an Organized Health Care Education/Training Program
DX: C34.90 Malignant neoplasm of unspecified part of unspecified bronchus or lung (principal); J91.0 Malignant pleural effusion; J44.9 Chronic obstructive pulmonary disease, unspecified; I25.10 Atherosclerotic heart disease of native coronary artery without angina pectoris; I48.0 Paroxysmal atrial fibrillation; I25.2 Old myocardial infarction; E78.5 Hyperlipidemia, unspecified; E11.22 Type 2 diabetes mellitus with diabetic chronic kidney disease; N18.30 Chronic kidney disease, stage 3 unspecified; I12.9 Hypertensive chronic kidney disease with stage 1 through stage 4 chronic kidney disease, or unspecified chronic kidney disease; G45.9 Transient cerebral ischemic attack, unspecified; G47.33 Obstructive sleep apnea (adult) (pediatric); Z79.84 Long term (current) use of oral hypoglycemic drugs; Z79.01 Long term (current) use of anticoagulants; Z79.899 Other long term (current) drug therapy
CPT/HCPCS: 71045; 32550; J1100; J2405; J0690; J2003